=== PATIENT | male | born 1945 | race Caucasian/White ===

== ENCOUNTER 2016-07-31 05:24 | Inpatient (IN) | payer OTHER, BC ==
[~2016-07-31] VITALS: Ht 182.9 cm; Wt 106.9 kg
[~2016-07-31 05:24] MED LIST: ADALAT CC90 MG PO; ALDACTONE25 MG PO; ASPIRIN325 MG; ASPIRIN325 MG PO; ASPIRIN81 M1 PO; BACTRIM,SEPT1 TABLET PO; BENADRYL A12.5 MG/5 PO; BENADRYL ALLERG25 MG PO; BUMETANIDE1 MG PO; CAPOTEN25 MG PO; CAPOTEN50 MG PO; CAPT25T PO; CAPTOPRIL25 MG PO; CAPTOPRIL50 MG PO; CARVEDILOL12.5 MG PO; CARVEDILOL3.125 MG PO; CARVEDILOL6.25 MG; CARVEDILOL6.25 MG PO; CLEOCIN150 MG PO; COREG CR10 MG PO; COREG6.25 M1 PO; DULERA 200 MCG/13 GM IH; FENOFIBRATE160 M1; FENOFIBRATE160 M1 PO; FUROSEMIDE20 MG PO; FUROSEMIDE40 MG PO; FUROSEMIDE80 MG; HUMULIN R500 UNITS/ SC; HYDROCHLOROTHIA25 MG PO; KEPPRA750 MG PO; KLOR-CON M2020 MEQ PO; LANTUS 10100 UNITS/; LANTUS 10100 UNITS/ SC; LASIX40 MG PO; LASIX80 MG PO; LOPRESSOR50 MG PO; LOVAZA1 GM; LOVAZA1 GM PO; Lasix PO; Lovaza PO; MAGNESIUM250 MG PO; MECLIZINE HCL25 MG PO; METFORMIN HCL500 M1 PO; METOLAZONE5 MG PO; MIRTAZAPINE15 MG PO; NEURONTIN300 MG PO; NOVOLOG PE100 UNITS/ SC; NOVOLOG PE100 UNITS/ SQ; PANTOPRAZOLE SO40 MG PO; PAROXETINE HCL20 MG; PAXIL20 MG PO; PHENYTOIN SODI300 MG PO; PROAIR HFA8.5 GM IH; REFRESH TEARS15 ML BOTH EYES; SENNA-TIME S T1 EACH PO; SIMVASTATIN40 MG; SIMVASTATIN40 MG PO; SIMVASTATIN80 MG PO; SPIRIVA1 INHALATI IH; SPIRONOLACTONE25 MG; SPIRONOLACTONE25 MG PO; TAMSULOSIN HCL0.4 MG PO; TYLENOL WITH C1 EACH PO; VICODIN ES 7.51 EAC1 PO; VITAMIN D22000 UNIT PO; VITAMIN D250000 UNIT PO; WELCHOL625 MG PO; ZOCOR40 MG PO
[2016-07-31 06:17] LABS: HEMATOCRIT 38.1 % (38.0-50.0); MCH 31.6 PG (29.0-34.0); MCHC 34.1 G/DL (30.0-36.0); MCV 92.7 FL (86-99); MEAN PLAT.VOLUME 12.1 uM^3 (9.0-12.4); PLATELET COUNT 144 K/uL (156-360); RBC DIS.WIDTH-CV 14.4 % (11.8-14.6); RBC DIS.WIDTH-SD 47.8 % (39-53); RED BLOOD COUNT 4.11 M/uL (4.00-5.50); WHITE BLOOD COUNT 12.7 K/uL (4.1-10.2)
[2016-07-31 06:27] LABS: CHLORIDE 100 mEq/L (99-109); POTASSIUM 3.5 mEq/L (3.7-5.4); SODIUM 137 mEq/L (136-147)
[2016-07-31 06:29] LABS: GLUCOSE 277 mg/dL (70-99)
[2016-07-31 06:30] LABS: ANION GAP 12 MEQ/L (2-14)
[2016-07-31 06:34] LABS: GFR ESTIMATE (CALCULATED) 45 mL/min/; UREA NITROGEN (BUN) 38 mg/dL (9-23)
[2016-07-31 08:01] LABS: TROP-I INTERPRETATION NEGATIVE; TROPONIN-I 0.19 ng/mL (0.0-0.30)
[2016-07-31] MEDS ORDERED: OMEGA 3 500 SO1 EACH PO (10:14)
[2016-07-31] MEDS ORDERED: CHOLEST CARE500 MG PO (10:15)
[2016-07-31] MEDS ORDERED: METOLAZONE5 MG PO (10:19)
[2016-07-31] MEDS ORDERED: LASIX40 MG PO ×2 (10:20→10:22)
[2016-07-31] MEDS ORDERED: SUPER CALCIUM600 MG PO (10:23)
[2016-07-31] MEDS ORDERED: COLACE100 MG PO (10:24)
[2016-07-31] MEDS ORDERED: COREG6.25 M1 PO (10:25)
[2016-07-31] MEDS ORDERED: COREG3.125 M1 PO (10:26)
[2016-07-31] MEDS ORDERED: HUMULIN R500 UNITS/ SC ×2 (10:48→10:49)
[2016-07-31 11:27] LABS: BASE EXCESS 5.6 mEq/L (-3 to +3); BICARBONATE 30.6 mEq/L (22-26); CARBOXY HGB 1.8 % (0-5); METHEMOGLOBIN 0.8 % (0-1.5); PCO2 45 mm Hg (35-45); PO2 81 mm Hg (80-100); pH 7.44 (7.35-7.45)
[2016-07-31 11:28] LABS: COMMENTS - BLOOD GASES A+C+; DEVICE NC; O2 FLOW 3 L/MIN; SITE LR; TOTAL RESP RATE 24 resp/min
[2016-07-31 12:18] VITALS: BP 133/76
[2016-07-31 12:24] LABS: POINT-OF-CARE METER ID UU14188625
[2016-07-31 16:49] VITALS: BP 143/81
[2016-07-31 20:00] VITALS: BP 139/65
[2016-07-31 22:19] LABS: POINT-OF-CARE METER ID UU14174225
[2016-07-31 22:41] LABS: METH RESISTANT S AUREUS PCR NEGATIVE (NEGATIVE)
[2016-07-31 22:50] LABS: PROBE CHECK PASS; SPECIMEN PROCESSING CONTROL PASS
[2016-08-01] VITALS (7 sets, daily range): BP systolic 100–150; BP diastolic 52–90
[2016-08-01 08:40] LABS: POINT-OF-CARE METER ID UU14188625
[2016-08-01 09:32] LABS: HEMATOCRIT 36.7 % (38.0-50.0); MCH 31.8 PG (29.0-34.0); MCHC 33.2 G/DL (30.0-36.0); MCV 95.6 FL (86-99); PLATELET COUNT 147 K/uL (156-360); RBC DIS.WIDTH-CV 14.4 % (11.8-14.6); RBC DIS.WIDTH-SD 50.3 % (39-53); RED BLOOD COUNT 3.84 M/uL (4.00-5.50); WHITE BLOOD COUNT 10.1 K/uL (4.1-10.2)
[2016-08-01 09:59] LABS: Estimated Average Glucose 260 mg/dL (70-123); HEMOGLOBIN A1c (GLYCOHEMOGLOB) 10.7 % HGB (Below 5.7)
[2016-08-01 10:28] LABS: ANION GAP 13 MEQ/L (2-14); CHLORIDE 96 MEQ/L (99-109); SAMPLE HEMOLYSIS CHECK 0; SAMPLE ICTERIC CHECK 0; SAMPLE LIPEMIA CHECK 0; SODIUM 136 MEQ/L (136-147); TOTAL BILIRUBIN 1.4 MG/DL (0.0-1.0)
[2016-08-01 10:46] LABS: ALKALINE PHOSPHATASE 77 IU/L (3-129); GFR ESTIMATE (CALCULATED) 42 mL/min/; GLUCOSE 408 mg/dL (70-99); UREA NITROGEN (BUN) 48 mg/dL (9-23)
[2016-08-01 14:17] LABS: POINT-OF-CARE METER ID UU14174225
[2016-08-01 17:17] LABS: POINT-OF-CARE METER ID UU14188625
[2016-08-01 21:54] LABS: POINT-OF-CARE METER ID UU14188625
[2016-08-02] VITALS: BP 112/61
[2016-08-02 02:53] LABS: POINT-OF-CARE METER ID UU14188625
[2016-08-02 04:00] VITALS: BP 115/66
[2016-08-02 07:17] LABS: ANION GAP 12 MEQ/L (2-14); CHLORIDE 97 MEQ/L (99-109); GFR ESTIMATE (CALCULATED) 26 mL/min/; POTASSIUM 3.6 MEQ/L (3.7-5.4); SAMPLE HEMOLYSIS CHECK 0; SAMPLE ICTERIC CHECK 0; SAMPLE LIPEMIA CHECK 0; SODIUM 140 MEQ/L (136-147); UREA NITROGEN (BUN) 62 mg/dL (9-23)
[2016-08-02 07:26] LABS: GLUCOSE 50 mg/dL (70-99)
[2016-08-02 07:49] VITALS: BP 113/69
[2016-08-02 16:16] VITALS: BP 116/68
[2016-08-02 21:39] LABS: POINT-OF-CARE METER ID UU14188625
[2016-08-02 22:14] LABS: BILIRUBIN NEGATIVE; BLOOD NEGATIVE; GLUCOSE (STRIP) 50; KETONES NEGATIVE; LEUKOCYTES NEGATIVE; NITRITE NEGATIVE; PROTEIN (STRIP) NEGATIVE; SPECIFIC GRAVITY 1.017 (1.000-1.030); UROBILINOGEN 0.2 MG/DL (0.2-1.0)
[2016-08-02 22:15] LABS: ADD MIUA? NO; COLOR YELLOW ((YELLOW))
[2016-08-02 23:14] VITALS: BP 133/70
[2016-08-03 07:32] LABS: POINT-OF-CARE METER ID UU14188625
[2016-08-03 07:52] VITALS: BP 150/76
[2016-08-03 08:36] LABS: HEMATOCRIT 33.6 % (38.0-50.0); MCH 31.8 PG (29.0-34.0); MCHC 33.3 G/DL (30.0-36.0); MCV 95.5 FL (86-99); MEAN PLAT.VOLUME 12.3 uM^3 (9.0-12.4); PLATELET COUNT 160 K/uL (156-360); RBC DIS.WIDTH-SD 48.3 % (39-53); RED BLOOD COUNT 3.52 M/uL (4.00-5.50)
[2016-08-03 08:44] LABS: WHITE BLOOD COUNT 6.1 K/uL (4.1-10.2)
[2016-08-03 08:53] LABS: ANION GAP 11 MEQ/L (2-14); CHLORIDE 101 MEQ/L (99-109); FERRITIN 318 NG/ML (22-322); GFR ESTIMATE (CALCULATED) 26 mL/min/; IRON 31 MCG/DL (35-150); POTASSIUM 4.2 MEQ/L (3.7-5.4); SAMPLE HEMOLYSIS CHECK 0; SAMPLE ICTERIC CHECK 0; SAMPLE LIPEMIA CHECK 0; SODIUM 141 MEQ/L (136-147); UREA NITROGEN (BUN) 80 mg/dL (9-23); URIC ACID 12.8 mg/dL (3.1-9.2)
[2016-08-03 08:54] LABS: GLUCOSE 127 mg/dL (70-99)
[2016-08-03 09:23] LABS: INTACT PARATHYROID HORMONE 76 pg/mL (10-69)
[2016-08-03 11:45] VITALS: BP 125/63
[2016-08-03 15:42] VITALS: BP 132/73
[2016-08-03 23:24] VITALS: BP 142/70
[2016-08-04 07:58] LABS: ANION GAP 11 MEQ/L (2-14); CHLORIDE 98 MEQ/L (99-109); GFR ESTIMATE (CALCULATED) 37 mL/min/; POTASSIUM 4.1 MEQ/L (3.7-5.4); SAMPLE HEMOLYSIS CHECK 0; SAMPLE ICTERIC CHECK 0; SAMPLE LIPEMIA CHECK 0; SODIUM 138 MEQ/L (136-147); UREA NITROGEN (BUN) 85 mg/dL (9-23)
[2016-08-04 07:59] LABS: GLUCOSE 45 mg/dL (70-99)
[2016-08-04 08:06] VITALS: BP 120/69
[2016-08-04 08:45] LABS: POINT-OF-CARE METER ID UU14188625
[2016-08-04 10:43] VITALS: BP 125/67
[2016-08-04 15:58] VITALS: BP 124/68
[2016-08-04 23:38] VITALS: BP 150/82
[2016-08-05 06:43] LABS: ANION GAP 8 MEQ/L (2-14); CHLORIDE 96 MEQ/L (99-109); GFR ESTIMATE (CALCULATED) 37 mL/min/; POTASSIUM 4.8 MEQ/L (3.7-5.4); SAMPLE HEMOLYSIS CHECK 0; SAMPLE ICTERIC CHECK 0; SAMPLE LIPEMIA CHECK 0; SODIUM 134 MEQ/L (136-147); UREA NITROGEN (BUN) 92 mg/dL (9-23)
[2016-08-05 06:44] LABS: GLUCOSE 381 mg/dL (70-99)
[2016-08-05 07:38] VITALS: BP 109/69
[2016-08-05 16:03] VITALS: BP 116/68
[2016-08-05 20:08] VITALS: BP 142/80
[2016-08-05 23:47] VITALS: BP 156/72
[2016-08-06 03:13] LABS: POINT-OF-CARE METER ID UU14188625
[2016-08-06 06:55] LABS: EOSINOPHIL (%) 0.3 % (0-5); HEMATOCRIT 34.5 % (38.0-50.0); IMMATURE GRANULOCYTE (%) 1.6 % (0.0-0.7); IMMATURE GRANULOCYTE COUNT 0.2 K/uL; INSTRUMENT ABS NEUTROPHIL CT 7.9 K/uL; LYMPHOCYTE COUNT 1.3 K/uL (1.0-2.8); MCH 31.8 PG (29.0-34.0); MCV 96.1 FL (86-99); MEAN PLAT.VOLUME 12.4 uM^3 (9.0-12.4); MONOCYTE (%) 10.4 % (3-12); MONOCYTE COUNT 1.1 K/uL (0-0.8); NEUTROPHIL (%) 75.3 % (45-76); NEUTROPHIL COUNT 7.9 K/uL (1.8-6.4); PLATELET COUNT 192 K/uL (156-360); RBC DIS.WIDTH-SD 49.3 % (39-53); RED BLOOD COUNT 3.59 M/uL (4.00-5.50)
[2016-08-06 07:04] LABS: WHITE BLOOD COUNT 10.5 K/uL (4.1-10.2)
[2016-08-06 07:39] VITALS: BP 127/73
[2016-08-06 08:28] LABS: ANION GAP 7 MEQ/L (2-14); CHLORIDE 100 MEQ/L (99-109); GFR ESTIMATE (CALCULATED) 49 mL/min/; POTASSIUM 4.9 MEQ/L (3.7-5.4); SAMPLE HEMOLYSIS CHECK 0; SAMPLE ICTERIC CHECK 0; SAMPLE LIPEMIA CHECK 0; SODIUM 138 MEQ/L (136-147); UREA NITROGEN (BUN) 91 mg/dL (9-23)
[2016-08-06 08:29] LABS: GLUCOSE 177 mg/dL (70-99)
[2016-08-06 15:51] VITALS: BP 154/92
[2016-08-06 21:00] VITALS: BP 169/87
[2016-08-06 23:20] VITALS: BP 178/94
[2016-08-07 03:15] VITALS: BP 164/88
[2016-08-07 07:22] VITALS: BP 130/70
[2016-08-07 07:36] LABS: HEMATOCRIT 36.9 % (38.0-50.0); MCH 31.5 PG (29.0-34.0); MCHC 32.8 G/DL (30.0-36.0); MCV 96.1 FL (86-99); MEAN PLAT.VOLUME 12.1 uM^3 (9.0-12.4); PLATELET COUNT 205 K/uL (156-360); RBC DIS.WIDTH-SD 49.3 % (39-53); RED BLOOD COUNT 3.84 M/uL (4.00-5.50); WHITE BLOOD COUNT 12.9 K/uL (4.1-10.2)
[2016-08-07 07:46] LABS: INTER. NORMALIZED RATIO 1.1; PTT 24.4 (25-32)
[2016-08-07 07:51] LABS: ANION GAP 5 MEQ/L (2-14); CHLORIDE 102 MEQ/L (99-109); GFR ESTIMATE (CALCULATED) 58 mL/min/; GLUCOSE 130 mg/dL (70-99); SAMPLE HEMOLYSIS CHECK 1; SAMPLE ICTERIC CHECK 0; SAMPLE LIPEMIA CHECK 0; SODIUM 139 MEQ/L (136-147); UREA NITROGEN (BUN) 74 mg/dL (9-23)
[2016-08-07 07:54] LABS: POTASSIUM 4.4 MEQ/L (3.7-5.4)
[2016-08-07 07:59] LABS: POINT-OF-CARE METER ID UU14174225
[2016-08-07 09:05] LABS: TYPE OF FLUID PLEURAL
[2016-08-07 09:59] LABS: BODY FLUID EOSINOPHILS 0 % (0-25); BODY FLUID RBC'S 1000 /MM^3 (0-100); BODY FLUID WBC'S 205 /MM^3 (0-500); MONONUCLEAR WBC'S 97 %; POLYNUCLEAR WBC'S 3 % (0-25)
[2016-08-07 10:01] LABS: BODY FLUID LDH 46 IU/L
[2016-08-07] MEDS ORDERED: LISINOPRIL5 MG PO (11:24)
[2016-08-07] MEDS ORDERED: CEFDINIR300 MG PO (11:24)
[2016-08-07] MEDS ORDERED: PREDNISONE20 MG PO (11:24)
[2016-08-07] MEDS ORDERED: CARVEDILOL6.25 MG PO (11:24)
[2016-08-07 11:32] LABS: BODY FLUID PROTEIN < 3 G/DL
[2016-08-07 11:38] VITALS: BP 132/71
[2016-08-07 12:19] LABS: POINT-OF-CARE METER ID UU14188625
[2016-08-07 13:01] LABS: POINT-OF-CARE METER ID UU14174225
== END 2016-08-07 14:25 | disposition home health service (06) | DRG 291 ==
LOC: EME 05:24 → EDOF 10:37 → 5SOUTH 10:37
PROVIDERS: Emergency Medicine; Hospitalist; Internal Medicine; Internal Medicine Cardiovascular Disease; Internal Medicine Nephrology; Nurse Practitioner Adult Health; Physician Assistant Medical
PROC: 0W993ZX Drainage of Right Pleural Cavity, Percutaneous Approach, Diagnostic (ICD-10-PCS; principal; 2016-08-07)
DX: I50.23 Acute on chronic systolic (congestive) heart failure (principal); J18.9 Pneumonia, unspecified organism; J96.11 Chronic respiratory failure with hypoxia; J44.1 Chronic obstructive pulmonary disease with (acute) exacerbation; N17.9 Acute kidney failure, unspecified; N18.3 Chronic kidney disease, stage 3 (moderate); I25.10 Atherosclerotic heart disease of native coronary artery without angina pectoris; L89.892 Pressure ulcer of other site, stage 2; I12.9 Hypertensive chronic kidney disease with stage 1 through stage 4 chronic kidney disease, or unspecified chronic kidney disease; E78.5 Hyperlipidemia, unspecified; E11.22 Type 2 diabetes mellitus with diabetic chronic kidney disease; G47.33 Obstructive sleep apnea (adult) (pediatric); I51.7 Cardiomegaly; E66.01 Morbid (severe) obesity due to excess calories; D64.9 Anemia, unspecified; Z68.32 Body mass index [BMI] 32.0-32.9, adult; Z86.73 Personal history of transient ischemic attack (TIA), and cerebral infarction without residual deficits; Z87.891 Personal history of nicotine dependence; Z79.4 Long term (current) use of insulin
CPT/HCPCS: 36600; 70450; 71010; 71020; 74230; 80048; 80053; 80069; 81003; 82306; 82728; 82746; 82803; 82945; 82948; 83036; 83540; 83615 91; 83880; 83970; 84157; 84443; 84466; 84484; 84550; 85025; 85027; 85610; 85730; 87040; 87070; 87205; 87641; 88108; 88305; 89051; 92526 GN; 92610 GN; 92611 GN; 93005; 94640; 94640 76; 94664; 94760; 94799; 97530 GO; 97530 GP; 99202; 99281; 99285; J0456; J0696; J1650; J1815; J1940; J7050; J7512

== ENCOUNTER 2016-10-04 16:32 | Inpatient (IN) | payer OTHER, BC ==
[~2016-10-04] VITALS: Ht 182.9 cm; Wt 106.7 kg
[~2016-10-04 16:32] MED LIST changes: +CEFDINIR300 MG PO; +CHOLEST CARE500 MG PO; +COLACE100 MG PO; +COREG3.125 M1 PO; +LISINOPRIL5 MG PO; +OMEGA 3 500 SO1 EACH PO; +PREDNISONE20 MG PO; +SUPER CALCIUM600 MG PO
[2016-10-04 17:12] LABS: CARBON DIOXIDE (BICARBONATE) 32.6 MEQ/L (20-31)
[2016-10-04 17:12] LABS: MCHC 34.9 G/DL (30.0-36.0); MCV 94.7 FL (86-99); PLATELET COUNT 148 K/uL (156-360); RBC DIS.WIDTH-CV 13.6 % (11.8-14.6); RBC DIS.WIDTH-SD 47.4 % (39-53); RED BLOOD COUNT 4.12 M/uL (4.00-5.50); WHITE BLOOD COUNT 9.9 K/uL (4.1-10.2)
[2016-10-04 17:20] LABS: CHLORIDE 96 mEq/L (99-109); POTASSIUM 4.3 mEq/L (3.7-5.4); SODIUM 136 mEq/L (136-147)
[2016-10-04 17:22] LABS: GLUCOSE 393 mg/dL (70-99)
[2016-10-04 17:23] LABS: ANION GAP 15 MEQ/L (2-14)
[2016-10-04 17:26] LABS: GFR ESTIMATE (CALCULATED) 45 mL/min/
[2016-10-04 17:27] LABS: UREA NITROGEN (BUN) 37 mg/dL (9-23)
[2016-10-04 17:32] LABS: TROP-I INTERPRETATION NEGATIVE; TROPONIN-I 0.02 ng/mL (0.0-0.30)
[2016-10-04] MEDS ORDERED: LISINOPRIL5 MG PO (19:40)
[2016-10-04 21:07] LABS: MAGNESIUM 1.9 mg/dL (1.3-2.7)
[2016-10-04 21:52] VITALS: BP 153/74
[2016-10-05] VITALS (7 sets, daily range): BP systolic 90–174; BP diastolic 47–97
[2016-10-05 06:44] LABS: ANION GAP 11 MEQ/L (2-14); CHLORIDE 98 MEQ/L (99-109); GFR ESTIMATE (CALCULATED) 40 mL/min/; MAGNESIUM 2.2 mg/dl (1.3-2.7); POTASSIUM 3.6 MEQ/L (3.7-5.4); SAMPLE HEMOLYSIS CHECK 0; SAMPLE ICTERIC CHECK 0; SAMPLE LIPEMIA CHECK 0; SODIUM 141 MEQ/L (136-147); UREA NITROGEN (BUN) 44 mg/dL (9-23)
[2016-10-05 06:46] LABS: GLUCOSE 66 mg/dL (70-99)
[2016-10-05 09:42] LABS: POINT-OF-CARE METER ID UU13113702
[2016-10-05 09:44] LABS: POINT-OF-CARE METER ID UU14174225
[2016-10-05 17:31] LABS: POINT-OF-CARE METER ID UU14174225
[2016-10-06 03:29] VITALS: BP 101/50
[2016-10-06 06:00] LABS: ANION GAP 11 MEQ/L (2-14); CHLORIDE 98 MEQ/L (99-109); GFR ESTIMATE (CALCULATED) 40 mL/min/; GLUCOSE 264 mg/dL (70-99); POTASSIUM 4.6 MEQ/L (3.7-5.4); SAMPLE HEMOLYSIS CHECK 0; SAMPLE ICTERIC CHECK 0; SAMPLE LIPEMIA CHECK 0; SODIUM 138 MEQ/L (136-147); UREA NITROGEN (BUN) 52 mg/dL (9-23)
[2016-10-06 08:06] VITALS: BP 113/71
[2016-10-06 12:00] VITALS: BP 134/85
[2016-10-06 15:12] VITALS: BP 158/77
[2016-10-06 16:34] LABS: POINT-OF-CARE METER ID UU13113717
[2016-10-06 19:38] VITALS: BP 124/67
[2016-10-06 21:37] LABS: POINT-OF-CARE METER ID UU13113717
[2016-10-06 23:38] VITALS: BP 139/73
[2016-10-07 03:36] VITALS: BP 143/75
[2016-10-07 06:28] LABS: ANION GAP 10 MEQ/L (2-14); CHLORIDE 96 MEQ/L (99-109); GFR ESTIMATE (CALCULATED) 42 mL/min/; GLUCOSE 300 mg/dL (70-99); MAGNESIUM 2.1 mg/dl (1.3-2.7); POTASSIUM 4.9 MEQ/L (3.7-5.4); SAMPLE HEMOLYSIS CHECK 0; SAMPLE ICTERIC CHECK 0; SAMPLE LIPEMIA CHECK 0; SODIUM 136 MEQ/L (136-147); UREA NITROGEN (BUN) 59 mg/dL (9-23)
[2016-10-07 08:00] VITALS: BP 147/82
[2016-10-07 11:24] VITALS: BP 136/80
[2016-10-07 15:32] VITALS: BP 138/82
[2016-10-07 19:30] VITALS: BP 140/76
[2016-10-07 23:49] VITALS: BP 147/68
[2016-10-08 03:57] VITALS: BP 122/74
[2016-10-08 05:33] LABS: POINT-OF-CARE METER ID UU13113717
[2016-10-08 07:04] LABS: ANION GAP 10 MEQ/L (2-14); CHLORIDE 99 MEQ/L (99-109); GFR ESTIMATE (CALCULATED) 42 mL/min/; POTASSIUM 4.3 MEQ/L (3.7-5.4); SAMPLE HEMOLYSIS CHECK 0; SAMPLE ICTERIC CHECK 0; SAMPLE LIPEMIA CHECK 0; SODIUM 140 MEQ/L (136-147); UREA NITROGEN (BUN) 66 mg/dL (9-23)
[2016-10-08 07:05] LABS: GLUCOSE 42 mg/dL (70-99)
[2016-10-08 07:35] LABS: POINT-OF-CARE METER ID UU13113717
[2016-10-08 08:21] VITALS: BP 108/62
== END 2016-10-08 12:35 | disposition home health service (06) | DRG 291 ==
LOC: EME → EDBD 16:32 → EME 16:32 → EDOF 20:07 → 5SOUTH 20:07
PROVIDERS: Emergency Medicine; Hospitalist; Internal Medicine; Internal Medicine Cardiovascular Disease; Physician Assistant Medical
DX: I13.0 Hypertensive heart and chronic kidney disease with heart failure and stage 1 through stage 4 chronic kidney disease, or unspecified chronic kidney disease (principal); I50.23 Acute on chronic systolic (congestive) heart failure; L97.519 Non-pressure chronic ulcer of other part of right foot with unspecified severity; G47.33 Obstructive sleep apnea (adult) (pediatric); E78.2 Mixed hyperlipidemia; Z91.19 Patient's noncompliance with other medical treatment and regimen; E11.22 Type 2 diabetes mellitus with diabetic chronic kidney disease; E11.621 Type 2 diabetes mellitus with foot ulcer; E11.40 Type 2 diabetes mellitus with diabetic neuropathy, unspecified; I42.9 Cardiomyopathy, unspecified; J96.11 Chronic respiratory failure with hypoxia; L89.151 Pressure ulcer of sacral region, stage 1; Z87.891 Personal history of nicotine dependence; F32.9 Major depressive disorder, single episode, unspecified; I69.393 Ataxia following cerebral infarction; E66.01 Morbid (severe) obesity due to excess calories; Z68.31 Body mass index [BMI] 31.0-31.9, adult; G81.91 Hemiplegia, unspecified affecting right dominant side; E11.65 Type 2 diabetes mellitus with hyperglycemia; N18.3 Chronic kidney disease, stage 3 (moderate); E11.610 Type 2 diabetes mellitus with diabetic neuropathic arthropathy; I25.10 Atherosclerotic heart disease of native coronary artery without angina pectoris; N40.0 Benign prostatic hyperplasia without lower urinary tract symptoms; J44.1 Chronic obstructive pulmonary disease with (acute) exacerbation; Z79.4 Long term (current) use of insulin; Z82.3 Family history of stroke; Z86.14 Personal history of Methicillin resistant Staphylococcus aureus infection
CPT/HCPCS: 71020; 80048; 82803; 82948; 83605; 83735; 83880; 84484; 84999; 85027; 87040; 93005; 93306; 94640; 94640 76; 94799; 99202; 99281; 99285; J1644; J1815; J1940

== ENCOUNTER 2016-11-18 10:42 | Inpatient (IN) | payer OTHER, BC ==
[~2016-11-18] VITALS: Ht 182.9 cm; Wt 105.4 kg
[2016-11-18 11:35] LABS: ADD MIUA? NO; BILIRUBIN NEGATIVE; BLOOD NEGATIVE; COLOR YELLOW ((YELLOW)); GLUCOSE (STRIP) >=500; KETONES NEGATIVE; LEUKOCYTES NEGATIVE; NITRITE NEGATIVE; PROTEIN (STRIP) 30; SPECIFIC GRAVITY 1.011 (1.000-1.030); UCUL ADDED? NO; UROBILINOGEN 0.2 MG/DL (0.2-1.0)
[2016-11-18 11:37] LABS: EOSINOPHIL (%) 1.8 % (0-5); EOSINOPHIL COUNT 0.2 K/uL (0-0.3); HEMATOCRIT 38.6 % (38.0-50.0); IMMATURE GRANULOCYTE (%) 0.7 % (0.0-0.7); IMMATURE GRANULOCYTE COUNT 0.1 K/uL; INSTRUMENT ABS NEUTROPHIL CT 6.1 K/uL; LYMPHOCYTE COUNT 1.2 K/uL (1.0-2.8); MCH 32.4 PG (29.0-34.0); MCHC 35.2 G/DL (30.0-36.0); MCV 91.9 FL (86-99); MEAN PLAT.VOLUME 11.7 uM^3 (9.0-12.4); MONOCYTE (%) 7.7 % (3-12); MONOCYTE COUNT 0.6 K/uL (0-0.8); NEUTROPHIL COUNT 6.1 K/uL (1.8-6.4); PLATELET COUNT 154 K/uL (156-360); RBC DIS.WIDTH-CV 11.9 % (11.8-14.6); RBC DIS.WIDTH-SD 40.1 % (39-53); WHITE BLOOD COUNT 8.2 K/uL (4.1-10.2)
[2016-11-18 11:40] LABS: CHLORIDE 96 mEq/L (99-109); POTASSIUM 5.1 mEq/L (3.7-5.4); SODIUM 136 mEq/L (136-147)
[2016-11-18 11:42] LABS: GLUCOSE 148 mg/dL (70-99)
[2016-11-18 11:43] LABS: ANION GAP 15 MEQ/L (2-14)
[2016-11-18 11:46] LABS: GFR ESTIMATE (CALCULATED) 24 mL/min/
[2016-11-18 11:48] LABS: UREA NITROGEN (BUN) 104 mg/dL (9-23)
[2016-11-18 11:51] LABS: TROP-I INTERPRETATION NEGATIVE; TROPONIN-I 0.08 ng/mL (0.0-0.30)
[2016-11-18 13:32] LABS: TOTAL BILIRUBIN 0.6 mg/dL (0.0-1.0)
[2016-11-18 13:33] LABS: ALKALINE PHOSPHATASE 73 IU/L (3-129)
[2016-11-18 13:35] LABS: DIRECT BILIRUBIN 0.2 mg/dL (0.0-0.3)
[2016-11-18 13:36] LABS: LIPASE 85 U/L (1.0-51.0)
[2016-11-18 13:45] LABS: POINT-OF-CARE METER ID UU14100415
[2016-11-18] MEDS ORDERED: REMERON15 M2 PO ×2 (14:56→14:57)
[2016-11-18] MEDS ORDERED: FLOMAX0.4 MG PO (14:59)
[2016-11-18 16:11] VITALS: BP 151/70
[2016-11-18 17:15] LABS: POINT-OF-CARE METER ID UU14174225
[2016-11-18 19:48] VITALS: BP 140/78
[2016-11-18 20:27] LABS: TROP-I INTERPRETATION NEGATIVE; TROPONIN-I 0.05 ng/mL (0.0-0.30)
[2016-11-18 23:41] VITALS: BP 110/63
[2016-11-19 03:33] VITALS: BP 118/68
[2016-11-19 06:09] LABS: HEMATOCRIT 34.5 % (38.0-50.0); MCH 32.3 PG (29.0-34.0); MCHC 35.1 G/DL (30.0-36.0); MEAN PLAT.VOLUME 11.3 uM^3 (9.0-12.4); PLATELET COUNT 133 K/uL (156-360); RBC DIS.WIDTH-CV 11.9 % (11.8-14.6); RBC DIS.WIDTH-SD 40.4 % (39-53); RED BLOOD COUNT 3.75 M/uL (4.00-5.50); WHITE BLOOD COUNT 7.9 K/uL (4.1-10.2)
[2016-11-19 06:35] LABS: ANION GAP 9 MEQ/L (2-14); CHLORIDE 104 MEQ/L (99-109); POTASSIUM 4.1 MEQ/L (3.7-5.4); SAMPLE HEMOLYSIS CHECK 0; SAMPLE ICTERIC CHECK 0; SAMPLE LIPEMIA CHECK 0; SODIUM 139 MEQ/L (136-147); UREA NITROGEN (BUN) 85 mg/dL (9-23)
[2016-11-19 07:00] LABS: GFR ESTIMATE (CALCULATED) 37 mL/min/; GLUCOSE 64 mg/dL (70-99)
[2016-11-19 07:16] LABS: TROP-I INTERPRETATION NEGATIVE; TROPONIN-I 0.06 ng/mL (0.0-0.30)
[2016-11-19 07:24] LABS: POINT-OF-CARE METER ID UU13113717
[2016-11-19 07:32] LABS: MAGNESIUM 2.2 mg/dl (1.3-2.7)
[2016-11-19 07:54] LABS: POINT-OF-CARE METER ID UU13113717
[2016-11-19 08:50] VITALS: BP 132/66
[2016-11-19 09:34] LABS: HDL CHOLESTEROL 27 MG/DL (Desirable>=40); NON-HDL CHOLESTEROL 208 mg/dL (Desirable<160); TOTAL CHOLESTEROL 235 mg/dL (Desirable<200); TRIGLYCERIDES 453 MG/DL (Normal: <150)
[2016-11-19 10:16] LABS: Estimated Average Glucose 303 mg/dL (70-123); HEMOGLOBIN A1c (GLYCOHEMOGLOB) 12.2 % HGB (Below 5.7)
[2016-11-19 12:31] VITALS: BP 136/64
[2016-11-19 15:48] VITALS: BP 131/61
[2016-11-19 16:53] LABS: POINT-OF-CARE METER ID UU13113717
[2016-11-19 19:49] VITALS: BP 115/56
[2016-11-19 20:40] LABS: POINT-OF-CARE USER ID BHSKTD
[2016-11-20] VITALS (10 sets, daily range): BP systolic 90–149; BP diastolic 51–70
[2016-11-20 05:36] LABS: HEMATOCRIT 29.4 % (38.0-50.0); MCH 33.5 PG (29.0-34.0); MCHC 35.7 G/DL (30.0-36.0); MCV 93.9 FL (86-99); MEAN PLAT.VOLUME 11.8 uM^3 (9.0-12.4); PLATELET COUNT 111 K/uL (156-360); RBC DIS.WIDTH-CV 12.1 % (11.8-14.6); RBC DIS.WIDTH-SD 41.1 % (39-53); RED BLOOD COUNT 3.13 M/uL (4.00-5.50); WHITE BLOOD COUNT 7.4 K/uL (4.1-10.2)
[2016-11-20 05:58] LABS: ANION GAP 5 MEQ/L (2-14); CHLORIDE 104 MEQ/L (99-109); GFR ESTIMATE (CALCULATED) 37 mL/min/; GLUCOSE 47 mg/dL (70-99); POTASSIUM 3.9 MEQ/L (3.7-5.4); SAMPLE HEMOLYSIS CHECK 0; SAMPLE ICTERIC CHECK 0; SAMPLE LIPEMIA CHECK 0; SODIUM 136 MEQ/L (136-147); UREA NITROGEN (BUN) 75 mg/dL (9-23)
[2016-11-20 08:37] LABS: POINT-OF-CARE METER ID UU14174225
[2016-11-20 17:12] LABS: POINT-OF-CARE METER ID UU14188625
[2016-11-21 03:58] VITALS: BP 123/59
[2016-11-21 05:53] LABS: HEMATOCRIT 30.6 % (38.0-50.0); MCH 33.1 PG (29.0-34.0); MCHC 35.6 G/DL (30.0-36.0); MEAN PLAT.VOLUME 12.3 uM^3 (9.0-12.4); PLATELET COUNT 132 K/uL (156-360); RBC DIS.WIDTH-CV 12.1 % (11.8-14.6); RED BLOOD COUNT 3.29 M/uL (4.00-5.50); WHITE BLOOD COUNT 7.4 K/uL (4.1-10.2)
[2016-11-21 06:26] LABS: POINT-OF-CARE METER ID UU14174225; POINT-OF-CARE USER ID BHSKTD
[2016-11-21 06:39] LABS: ANION GAP 8 MEQ/L (2-14); CHLORIDE 104 MEQ/L (99-109); GFR ESTIMATE (CALCULATED) 42 mL/min/; SAMPLE HEMOLYSIS CHECK 0; SAMPLE ICTERIC CHECK 0; SAMPLE LIPEMIA CHECK 0; SODIUM 138 MEQ/L (136-147); UREA NITROGEN (BUN) 59 mg/dL (9-23)
[2016-11-21 06:40] LABS: GLUCOSE 158 mg/dL (70-99)
[2016-11-21 08:44] VITALS: BP 133/71
[2016-11-21 11:32] VITALS: BP 158/67
[2016-11-21 12:26] LABS: POINT-OF-CARE METER ID UU13113717
[2016-11-21 16:12] VITALS: BP 145/74
[2016-11-21 17:05] LABS: POINT-OF-CARE METER ID UU13113717
[2016-11-21 20:00] VITALS: BP 146/70
[2016-11-21 21:04] LABS: POINT-OF-CARE METER ID UU13113717
[2016-11-22 00:10] VITALS: BP 151/71
[2016-11-22 04:15] VITALS: BP 134/70
[2016-11-22 07:09] LABS: HEMATOCRIT 33.5 % (38.0-50.0); MCH 33.6 PG (29.0-34.0); MCHC 36.1 G/DL (30.0-36.0); MCV 93.1 FL (86-99); MEAN PLAT.VOLUME 11.6 uM^3 (9.0-12.4); PLATELET COUNT 122 K/uL (156-360); RBC DIS.WIDTH-CV 12.2 % (11.8-14.6); RBC DIS.WIDTH-SD 41.6 % (39-53); WHITE BLOOD COUNT 6.7 K/uL (4.1-10.2)
[2016-11-22 07:23] LABS: ANION GAP 8 MEQ/L (2-14); CHLORIDE 104 MEQ/L (99-109); GFR ESTIMATE (CALCULATED) 53 mL/min/; GLUCOSE 182 mg/dL (70-99); POTASSIUM 4.3 MEQ/L (3.7-5.4); SAMPLE HEMOLYSIS CHECK 0; SAMPLE ICTERIC CHECK 0; SAMPLE LIPEMIA CHECK 0; SODIUM 139 MEQ/L (136-147); UREA NITROGEN (BUN) 47 mg/dL (9-23)
[2016-11-22 07:45] VITALS: BP 125/58
[2016-11-22] MEDS ORDERED: LASIX40 MG PO (07:59)
[2016-11-22 12:12] LABS: POINT-OF-CARE METER ID UU14188625
== END 2016-11-22 13:03 | disposition home health service (06) | DRG 683 ==
LOC: EME → EDBD 10:42 → EME 10:42 → 5SOUTH 13:59 → EDOF 13:59 → ENRESERV 14:00 → 5SOUTH 15:10
PROVIDERS: Emergency Medicine; Hospitalist; Internal Medicine; Internal Medicine Cardiovascular Disease; Physician Assistant Medical
DX: N17.9 Acute kidney failure, unspecified (principal); I42.8 Other cardiomyopathies; I13.0 Hypertensive heart and chronic kidney disease with heart failure and stage 1 through stage 4 chronic kidney disease, or unspecified chronic kidney disease; I47.2 Ventricular tachycardia; I69.359 Hemiplegia and hemiparesis following cerebral infarction affecting unspecified side; F05 Delirium due to known physiological condition; N18.3 Chronic kidney disease, stage 3 (moderate); E11.22 Type 2 diabetes mellitus with diabetic chronic kidney disease; E11.621 Type 2 diabetes mellitus with foot ulcer; E11.65 Type 2 diabetes mellitus with hyperglycemia; L97.519 Non-pressure chronic ulcer of other part of right foot with unspecified severity; E11.649 Type 2 diabetes mellitus with hypoglycemia without coma; E78.5 Hyperlipidemia, unspecified; F41.9 Anxiety disorder, unspecified; E86.9 Volume depletion, unspecified; G47.33 Obstructive sleep apnea (adult) (pediatric); I25.10 Atherosclerotic heart disease of native coronary artery without angina pectoris; E86.0 Dehydration; I50.9 Heart failure, unspecified; J44.9 Chronic obstructive pulmonary disease, unspecified; Z79.82 Long term (current) use of aspirin; Z79.4 Long term (current) use of insulin; Z87.891 Personal history of nicotine dependence; Z99.81 Dependence on supplemental oxygen
CPT/HCPCS: 70450; 70551; 71010; 71020; 76770; 80048; 80061; 80076; 81003; 82948; 83036; 83605; 83690; 83735; 83880; 84100; 84484; 85025; 85027; 93005; 94640; 94640 76; 94799; 97530 GP; 99202; 99281; 99284; J1644; J1815; J7030

== ENCOUNTER 2017-01-12 12:53 | Emergency (ER) | payer OTHER, BC ==
[~2017-01-12] VITALS: Ht 182.9 cm; Wt 100.0 kg
[~2017-01-12 12:53] MED LIST changes: +FLOMAX0.4 MG PO; +REMERON15 M2 PO
[2017-01-12 13:23] LABS: BASOPHIL COUNT 0.1 K/uL (0-0.1); EOSINOPHIL (%) 1.6 % (0-5); EOSINOPHIL COUNT 0.1 K/uL (0-0.3); HEMATOCRIT 40.1 % (38.0-50.0); IMMATURE GRANULOCYTE (%) 0.5 % (0.0-0.7); INSTRUMENT ABS NEUTROPHIL CT 5.5 K/uL; LYMPHOCYTE COUNT 1.3 K/uL (1.0-2.8); MCH 33.3 PG (29.0-34.0); MCHC 35.9 G/DL (30.0-36.0); MCV 92.8 FL (86-99); MEAN PLAT.VOLUME 12.1 uM^3 (9.0-12.4); MONOCYTE (%) 8.1 % (3-12); MONOCYTE COUNT 0.6 K/uL (0-0.8); NEUTROPHIL (%) 72.2 % (45-76); NEUTROPHIL COUNT 5.5 K/uL (1.8-6.4); PLATELET COUNT 158 K/uL (156-360); RBC DIS.WIDTH-CV 12.9 % (11.8-14.6); RED BLOOD COUNT 4.32 M/uL (4.00-5.50); WHITE BLOOD COUNT 7.6 K/uL (4.1-10.2)
[2017-01-12 13:30] LABS: INTER. NORMALIZED RATIO 1.1; PROTHROMBIN TIME 11.7 SEC (10.2-12.9)
[2017-01-12 13:33] LABS: PTT 25.6 SEC (25-37)
[2017-01-12 13:37] LABS: CHLORIDE 88 mEq/L (99-109); POTASSIUM 3.5 mEq/L (3.7-5.4); SODIUM 134 mEq/L (136-147)
[2017-01-12 13:40] LABS: ANION GAP 16 MEQ/L (2-14)
[2017-01-12 13:41] LABS: GLUCOSE 525 mg/dL (70-99); TROP-I INTERPRETATION NEGATIVE; TROPONIN-I 0.06 ng/mL (0.0-0.30)
[2017-01-12 13:42] LABS: GFR ESTIMATE (CALCULATED) 37 mL/min/
[2017-01-12 14:31] LABS: CARBON DIOXIDE (BICARBONATE) 36.4 MEQ/L (20-31)
[2017-01-12 16:41] LABS: ADD MIUA? NO; BILIRUBIN NEGATIVE; BLOOD NEGATIVE; COLOR YELLOW ((YELLOW)); GLUCOSE (STRIP) >=500; KETONES 5; LEUKOCYTES NEGATIVE; NITRITE NEGATIVE; PROTEIN (STRIP) 30; UROBILINOGEN 0.2 MG/DL (0.2-1.0)
[2017-01-12 16:43] LABS: UCUL ADDED? NO
[2017-01-12 18:56] VITALS: BP 165/81
[2017-01-13 11:59] LABS: POINT-OF-CARE METER ID UU14100415
[2017-01-13 11:59] LABS: POINT-OF-CARE METER ID UU14100415; POINT-OF-CARE USER ID PUTMLD10
== END 2017-01-12 18:57 | disposition home or self-care (01) ==
LOC: EME 12:53
PROVIDERS: Emergency Medicine
DX: E11.65 Type 2 diabetes mellitus with hyperglycemia (principal); I13.0 Hypertensive heart and chronic kidney disease with heart failure and stage 1 through stage 4 chronic kidney disease, or unspecified chronic kidney disease; N18.9 Chronic kidney disease, unspecified; I50.9 Heart failure, unspecified; E11.22 Type 2 diabetes mellitus with diabetic chronic kidney disease; E78.5 Hyperlipidemia, unspecified; Z79.4 Long term (current) use of insulin; J44.9 Chronic obstructive pulmonary disease, unspecified; F32.9 Major depressive disorder, single episode, unspecified; F41.9 Anxiety disorder, unspecified; I69.951 Hemiplegia and hemiparesis following unspecified cerebrovascular disease affecting right dominant side; Z85.828 Personal history of other malignant neoplasm of skin; Z87.891 Personal history of nicotine dependence; F10.10 Alcohol abuse, uncomplicated
CPT/HCPCS: 70450; 71010; 80048; 81003; 82010; 82803; 82948; 83605; 83880; 84484; 85025; 85610; 85730; 99281; 99285; J7030

== ENCOUNTER 2017-02-22 14:03 | Inpatient (IN) | payer OTHER, BC ==
[~2017-02-22] VITALS: Ht 182.9 cm; Wt 119.0 kg
[~2017-02-22 14:03] MED LIST changes: -ASPIRIN325 MG PO; +CALCIUM 500 +1 EACH PO; +LITE COAT ASPI325 M1 PO; -SUPER CALCIUM600 MG PO; -VITAMIN D22000 UNIT PO; +VITAMIN D5000 UNI1 PO
[2017-02-22 15:03] LABS: BASOPHIL COUNT 0.1 K/uL (0-0.1); CARBON DIOXIDE (BICARBONATE) 29.8 MEQ/L (20-31); EOSINOPHIL (%) 0.1 % (0-5); IMMATURE GRANULOCYTE (%) 0.5 % (0.0-0.7); IMMATURE GRANULOCYTE COUNT 0.1 K/uL; INSTRUMENT ABS NEUTROPHIL CT 9.6 K/uL; LYMPHOCYTE COUNT 0.8 K/uL (1.0-2.8); MCHC 34.6 G/DL (30.0-36.0); MCV 98.1 FL (86-99); MEAN PLAT.VOLUME 12.1 uM^3 (9.0-12.4); MONOCYTE (%) 9.5 % (3-12); MONOCYTE COUNT 1.1 K/uL (0-0.8); NEUTROPHIL (%) 82.4 % (45-76); NEUTROPHIL COUNT 9.6 K/uL (1.8-6.4); PLATELET COUNT 154 K/uL (156-360); RBC DIS.WIDTH-CV 12.6 % (11.8-14.6); RBC DIS.WIDTH-SD 45.2 % (39-53); RED BLOOD COUNT 3.77 M/uL (4.00-5.50); WHITE BLOOD COUNT 11.6 K/uL (4.1-10.2)
[2017-02-22 15:17] LABS: CHLORIDE 94 mEq/L (99-109); POTASSIUM 4.3 mEq/L (3.7-5.4); SODIUM 134 mEq/L (136-147)
[2017-02-22 15:20] LABS: ANION GAP 15 MEQ/L (2-14)
[2017-02-22 15:21] LABS: TOTAL BILIRUBIN 1.5 mg/dL (0.0-1.0)
[2017-02-22 15:22] LABS: ALKALINE PHOSPHATASE 64 IU/L (3-129)
[2017-02-22 15:23] LABS: GFR ESTIMATE (CALCULATED) 37 mL/min/
[2017-02-22 15:24] LABS: UREA NITROGEN (BUN) 35 mg/dL (9-23)
[2017-02-22 15:27] LABS: GLUCOSE 648 mg/dL (70-99)
[2017-02-22 15:31] LABS: TROP-I INTERPRETATION POSITIVE
[2017-02-22 15:33] LABS: TROPONIN-I 7.65 ng/mL (0.0-0.30)
[2017-02-22 15:45] LABS: POINT-OF-CARE METER ID UU13113747
[2017-02-22 16:28] LABS: INTER. NORMALIZED RATIO 1.2; PROTHROMBIN TIME 13.2 SEC (10.2-12.9)
[2017-02-22 16:30] LABS: ADD MIUA? YES; BILIRUBIN NEGATIVE; BLOOD NEGATIVE; COLOR YELLOW ((YELLOW)); GLUCOSE (STRIP) >=500; KETONES 5; LEUKOCYTES NEGATIVE; NITRITE NEGATIVE; PROTEIN (STRIP) 100; SPECIFIC GRAVITY 1.026 (1.000-1.030); UROBILINOGEN 0.2 MG/DL (0.2-1.0)
[2017-02-22 16:31] LABS: PTT 27.7 SEC (25-37)
[2017-02-22 16:37] LABS: BACTERIA NONE SEEN /HPF; EPITHELIAL CELLS RARE /HPF; MUCUS NONE SEEN /LPF; RED BLOOD CELLS 0-5 /HPF (0-5); UCUL ADDED? NO; WHITE BLOOD CELLS 0-5 /HPF (0-5)
[2017-02-22] MEDS ORDERED: FUROSEMIDE40 MG PO ×2 (16:38)
[2017-02-22] MEDS ORDERED: VITAMIN B COMP1 EACH PO (16:41)
[2017-02-22] MEDS ORDERED: MUPIROCIN22 GM TP (16:42)
[2017-02-22] MEDS ORDERED: METOLAZONE5 MG PO (16:42)
[2017-02-22] MEDS ORDERED: CLEOCIN300 MG PO (16:42)
[2017-02-22] MEDS ORDERED: SUPER MULTIVIT1 EACH PO (16:43)
[2017-02-22 18:36] VITALS: BP 125/70
[2017-02-22 18:37] VITALS: BP 125/70
[2017-02-22 19:53] LABS: HDL CHOLESTEROL 37 MG/DL (Desirable>=40); LDL CHOLESTEROL 153 mg/dL (Desirable<100); NON-HDL CHOLESTEROL 184 mg/dL (Desirable<160); TOTAL CHOLESTEROL 221 mg/dL (Desirable<200); TRIGLYCERIDES 155 MG/DL (Normal: <150)
[2017-02-22 21:57] LABS: Estimated Average Glucose 258 mg/dL (70-123); HEMOGLOBIN A1c (GLYCOHEMOGLOB) 10.6 % HGB (Below 5.7)
[2017-02-23] VITALS (7 sets, daily range): BP systolic 89–135; BP diastolic 54–81
[2017-02-23 00:59] LABS: TROP-I INTERPRETATION POSITIVE
[2017-02-23 01:12] LABS: TROPONIN-I 10.71 ng/mL (0.0-0.30)
[2017-02-23 05:23] LABS: HEMATOCRIT 35.8 % (38.0-50.0); MCH 33.4 PG (29.0-34.0); MCHC 34.1 G/DL (30.0-36.0); MCV 98.1 FL (86-99); MEAN PLAT.VOLUME 12.1 uM^3 (9.0-12.4); PLATELET COUNT 153 K/uL (156-360); RBC DIS.WIDTH-CV 12.6 % (11.8-14.6); RBC DIS.WIDTH-SD 45.7 % (39-53); RED BLOOD COUNT 3.65 M/uL (4.00-5.50); WHITE BLOOD COUNT 13.6 K/uL (4.1-10.2)
[2017-02-23 05:56] LABS: TROP-I INTERPRETATION POSITIVE; TROPONIN-I 18.36 ng/mL (0.0-0.30)
[2017-02-23 07:58] LABS: POINT-OF-CARE METER ID UU13113781
[2017-02-23 11:14] LABS: POINT-OF-CARE METER ID UU13113781
[2017-02-23 14:22] LABS: INTER. NORMALIZED RATIO 1.2; PROTHROMBIN TIME 14.1 SEC (10.2-12.9)
[2017-02-23 14:27] LABS: PTT 34.6 SEC (25-37)
[2017-02-23 16:27] LABS: POINT-OF-CARE METER ID UU13113781
[2017-02-23 19:42] LABS: ANION GAP 10 MEQ/L (2-14); CHLORIDE 93 MEQ/L (99-109); SAMPLE HEMOLYSIS CHECK 0; SAMPLE ICTERIC CHECK 0; SAMPLE LIPEMIA CHECK 0; SODIUM 130 MEQ/L (136-147)
[2017-02-23 19:47] LABS: UREA NITROGEN (BUN) 48 mg/dL (9-23)
[2017-02-23 19:50] LABS: GLUCOSE 110 mg/dL (70-99)
[2017-02-23 19:51] LABS: GFR ESTIMATE (CALCULATED) 28 mL/min/; POTASSIUM 3.4 MEQ/L (3.7-5.4)
[2017-02-23 21:17] LABS: POINT-OF-CARE METER ID UU14174216
[2017-02-23 22:02] LABS: INTER. NORMALIZED RATIO 1.2; PROTHROMBIN TIME 13.7 SEC (10.2-12.9)
[2017-02-23 22:04] LABS: PTT 41.8 SEC (25-37)
[2017-02-24 00:24] VITALS: BP 89/53
[2017-02-24 02:19] LABS: POINT-OF-CARE METER ID UU13113781
[2017-02-24 04:00] VITALS: BP 90/51
[2017-02-24 04:34] LABS: POINT-OF-CARE METER ID UU13113698
[2017-02-24 06:02] LABS: ANION GAP 13 MEQ/L (2-14); CHLORIDE 93 MEQ/L (99-109); GFR ESTIMATE (CALCULATED) 21 mL/min/; GLUCOSE 127 mg/dL (70-99); POTASSIUM 3.8 MEQ/L (3.7-5.4); SAMPLE HEMOLYSIS CHECK 0; SAMPLE ICTERIC CHECK 0; SAMPLE LIPEMIA CHECK 0; SODIUM 131 MEQ/L (136-147); UREA NITROGEN (BUN) 53 mg/dL (9-23)
[2017-02-24 08:05] LABS: POINT-OF-CARE METER ID UU13113698; POINT-OF-CARE USER ID ENVKC36
[2017-02-24 08:21] VITALS: BP 99/54
[2017-02-24 11:27] VITALS: BP 100/53
[2017-02-24 11:30] LABS: POINT-OF-CARE METER ID UU14174216; POINT-OF-CARE USER ID ENVKC36
[2017-02-24 16:10] VITALS: BP 117/59
[2017-02-24 16:41] LABS: POINT-OF-CARE METER ID UU13113698; POINT-OF-CARE USER ID ENVKC36
[2017-02-24 20:30] VITALS: BP 117/62
[2017-02-25] VITALS (7 sets, daily range): BP systolic 95–124; BP diastolic 52–74
[2017-02-25 01:31] LABS: CHLORIDE 89 mEq/L (99-109); POTASSIUM 4.5 mEq/L (3.7-5.4); SODIUM 128 mEq/L (136-147)
[2017-02-25 01:34] LABS: ANION GAP 16 MEQ/L (2-14)
[2017-02-25 01:37] LABS: GFR ESTIMATE (CALCULATED) 17 mL/min/
[2017-02-25 01:38] LABS: UREA NITROGEN (BUN) 75 mg/dL (9-23)
[2017-02-25 01:43] LABS: GLUCOSE 423 mg/dL (70-99)
[2017-02-25 02:00] LABS: POINT-OF-CARE METER ID UU13113698
[2017-02-25 08:14] LABS: POINT-OF-CARE METER ID UU13113698; POINT-OF-CARE USER ID ENVKC36
[2017-02-25 11:46] LABS: POINT-OF-CARE METER ID UU13113781; POINT-OF-CARE USER ID ENVKC36
[2017-02-25 16:37] LABS: POINT-OF-CARE METER ID UU14174216; POINT-OF-CARE USER ID ENVKC36
[2017-02-25 20:14] LABS: POINT-OF-CARE METER ID UU13113698
[2017-02-25 20:42] LABS: POINT-OF-CARE METER ID UU13113698
[2017-02-25 20:42] LABS: POINT-OF-CARE METER ID UU14174216
[2017-02-25 20:42] LABS: POINT-OF-CARE METER ID UU13113747; POINT-OF-CARE USER ID LABGLH01
[2017-02-26 03:20] VITALS: BP 120/70
[2017-02-26 05:39] LABS: EOSINOPHIL (%) 1.5 % (0-5); EOSINOPHIL COUNT 0.1 K/uL (0-0.3); IMMATURE GRANULOCYTE (%) 0.8 % (0.0-0.7); IMMATURE GRANULOCYTE COUNT 0.1 K/uL; INSTRUMENT ABS NEUTROPHIL CT 7.1 K/uL; LYMPHOCYTE COUNT 0.8 K/uL (1.0-2.8); MCH 34.5 PG (29.0-34.0); MCV 98.7 FL (86-99); MEAN PLAT.VOLUME 12.7 uM^3 (9.0-12.4); MONOCYTE (%) 10.2 % (3-12); MONOCYTE COUNT 0.9 K/uL (0-0.8); NEUTROPHIL COUNT 7.1 K/uL (1.8-6.4); PLATELET COUNT 149 K/uL (156-360); RBC DIS.WIDTH-CV 12.5 % (11.8-14.6); RED BLOOD COUNT 3.04 M/uL (4.00-5.50); WHITE BLOOD COUNT 9.1 K/uL (4.1-10.2)
[2017-02-26 06:09] LABS: ANION GAP 13 MEQ/L (2-14); CHLORIDE 89 MEQ/L (99-109); GFR ESTIMATE (CALCULATED) 18 mL/min/; GLUCOSE 255 mg/dL (70-99); POTASSIUM 4.7 MEQ/L (3.7-5.4); SAMPLE HEMOLYSIS CHECK 0; SAMPLE ICTERIC CHECK 0; SAMPLE LIPEMIA CHECK 0; SODIUM 126 MEQ/L (136-147); UREA NITROGEN (BUN) 93 mg/dL (9-23)
[2017-02-26 07:45] LABS: POINT-OF-CARE METER ID UU13113698; POINT-OF-CARE USER ID NUTSLF44
[2017-02-26 08:15] VITALS: BP 126/76
[2017-02-26 10:18] LABS: POINT-OF-CARE METER ID UU13113781
[2017-02-26 10:34] LABS: POINT-OF-CARE METER ID UU14174216
[2017-02-26 11:33] LABS: POINT-OF-CARE METER ID UU13113698; POINT-OF-CARE USER ID NUTSLF44
[2017-02-26 12:37] VITALS: BP 137/76
[2017-02-26 16:45] VITALS: BP 135/72
[2017-02-26 17:08] LABS: POINT-OF-CARE METER ID UU13113698; POINT-OF-CARE USER ID NUTSLF44
[2017-02-26 19:30] VITALS: BP 115/75
[2017-02-26 21:33] LABS: POINT-OF-CARE METER ID UU13113781
[2017-02-26 23:45] VITALS: BP 117/69
[2017-02-27 02:17] LABS: POINT-OF-CARE METER ID UU13113781
[2017-02-27 03:39] VITALS: BP 118/59
[2017-02-27 06:08] LABS: ANION GAP 13 MEQ/L (2-14); CHLORIDE 92 MEQ/L (99-109); GFR ESTIMATE (CALCULATED) 26 mL/min/; POTASSIUM 4.6 MEQ/L (3.7-5.4); SAMPLE HEMOLYSIS CHECK 0; SAMPLE ICTERIC CHECK 0; SAMPLE LIPEMIA CHECK 0; SODIUM 130 MEQ/L (136-147)
[2017-02-27 06:09] LABS: GLUCOSE 84 mg/dL (70-99); UREA NITROGEN (BUN) 102 mg/dL (9-23)
[2017-02-27 07:21] LABS: POINT-OF-CARE METER ID UU13113698
[2017-02-27 08:22] VITALS: BP 131/75
[2017-02-27 11:10] LABS: ANTI-HEPATITIS B CORE (TOTAL) Nonreactive; HBCT INDEX 0.18
[2017-02-27 11:12] LABS: HBSG INDEX 0.19
[2017-02-27 11:13] LABS: HPCA INDEX 0.16
[2017-02-27 11:14] LABS: AHBS INDEX 0.13; HEPATITIS B SURFACE ANTIBODY Nonreactive
[2017-02-27 15:55] VITALS: BP 142/71
[2017-02-27 16:40] LABS: POINT-OF-CARE METER ID UU13113698; POINT-OF-CARE USER ID ENVKC36
[2017-02-27 19:05] VITALS: BP 135/77
[2017-02-27 21:22] LABS: POINT-OF-CARE METER ID UU13113781
[2017-02-28 00:35] VITALS: BP 116/61
[2017-02-28 01:38] LABS: POINT-OF-CARE METER ID UU13113698
[2017-02-28 05:00] VITALS: BP 131/73
[2017-02-28 05:27] LABS: HEMATOCRIT 32.5 % (38.0-50.0); MCH 34.2 PG (29.0-34.0); MCHC 33.8 G/DL (30.0-36.0); MCV 100.9 FL (86-99); MEAN PLAT.VOLUME 12.7 uM^3 (9.0-12.4); PLATELET COUNT 181 K/uL (156-360); RBC DIS.WIDTH-CV 12.5 % (11.8-14.6); RBC DIS.WIDTH-SD 46.6 % (39-53); RED BLOOD COUNT 3.22 M/uL (4.00-5.50); WHITE BLOOD COUNT 11.2 K/uL (4.1-10.2)
[2017-02-28 06:11] LABS: ANION GAP 11 MEQ/L (2-14); CHLORIDE 90 MEQ/L (99-109); GFR ESTIMATE (CALCULATED) 33 mL/min/; SAMPLE HEMOLYSIS CHECK 0; SAMPLE ICTERIC CHECK 0; SAMPLE LIPEMIA CHECK 0; SODIUM 127 MEQ/L (136-147); UREA NITROGEN (BUN) 84 mg/dL (9-23)
[2017-02-28 06:13] LABS: GLUCOSE 252 mg/dL (70-99)
[2017-02-28 07:20] LABS: POINT-OF-CARE METER ID UU14174216
[2017-02-28 08:16] VITALS: BP 135/75
[2017-02-28 11:24] LABS: POINT-OF-CARE METER ID UU13113781
[2017-02-28 15:28] VITALS: BP 133/69
[2017-02-28 16:34] LABS: POINT-OF-CARE METER ID UU13113698
[2017-02-28 21:12] LABS: POINT-OF-CARE METER ID UU14174216
[2017-02-28 21:30] VITALS: BP 131/69
[2017-03-01 00:39] VITALS: BP 111/60
[2017-03-01 00:49] LABS: POINT-OF-CARE METER ID UU13113698
[2017-03-01 04:38] LABS: POINT-OF-CARE METER ID UU13113698
[2017-03-01 04:47] VITALS: BP 129/70
[2017-03-01 05:21] LABS: POTASSIUM 4.5 mEq/L (3.7-5.4); SODIUM 133 mEq/L (136-147)
[2017-03-01 05:22] LABS: MAGNESIUM 2.5 mg/dL (1.3-2.7)
[2017-03-01 05:25] LABS: ANION GAP 12 MEQ/L (2-14); CHLORIDE 98 mEq/L (99-109); GLUCOSE 121 mg/dL (70-99)
[2017-03-01 05:27] LABS: GFR ESTIMATE (CALCULATED) 35 mL/min/
[2017-03-01 05:28] LABS: UREA NITROGEN (BUN) 64 mg/dL (9-23)
[2017-03-01 07:17] VITALS: BP 134/77
[2017-03-01 08:12] LABS: POINT-OF-CARE METER ID UU13113698
[2017-03-01 10:49] VITALS: BP 135/74
[2017-03-01 11:50] LABS: POINT-OF-CARE METER ID UU13113781
[2017-03-01 16:21] VITALS: BP 140/79
[2017-03-01 16:57] LABS: POINT-OF-CARE METER ID UU13113698; POINT-OF-CARE USER ID ENVKC36
[2017-03-01 19:25] VITALS: BP 132/72
[2017-03-01 20:42] LABS: POINT-OF-CARE METER ID UU14174216
[2017-03-02] VITALS (7 sets, daily range): BP systolic 122–140; BP diastolic 63–73
[2017-03-02 01:38] LABS: POINT-OF-CARE METER ID UU13113781
[2017-03-02 04:53] LABS: POINT-OF-CARE METER ID UU14314088
[2017-03-02 05:15] LABS: POINT-OF-CARE METER ID UU14314088
[2017-03-02 05:36] LABS: HEMATOCRIT 31.3 % (38.0-50.0); MCHC 33.5 G/DL (30.0-36.0); MCV 101.3 FL (86-99); MEAN PLAT.VOLUME 12.1 uM^3 (9.0-12.4); PLATELET COUNT 208 K/uL (156-360); RBC DIS.WIDTH-CV 12.6 % (11.8-14.6); RBC DIS.WIDTH-SD 46.7 % (39-53); RED BLOOD COUNT 3.09 M/uL (4.00-5.50); WHITE BLOOD COUNT 9.1 K/uL (4.1-10.2)
[2017-03-02 06:44] LABS: ANION GAP 11 MEQ/L (2-14); CHLORIDE 98 MEQ/L (99-109); GFR ESTIMATE (CALCULATED) 42 mL/min/; GLUCOSE 114 mg/dL (70-99); POTASSIUM 4.3 MEQ/L (3.7-5.4); SAMPLE HEMOLYSIS CHECK 0; SAMPLE ICTERIC CHECK 0; SAMPLE LIPEMIA CHECK 0; SODIUM 134 MEQ/L (136-147); UREA NITROGEN (BUN) 70 mg/dL (9-23)
[2017-03-02 07:35] LABS: BASE EXCESS 5.1 mEq/L (-3 to +3); BICARBONATE 29.9 mEq/L (22-26); CARBOXY HGB 1.6 % (0-5); METHEMOGLOBIN 1.3 % (0-1.5); PCO2 44 mm Hg (35-45); PO2 81 mm Hg (80-100); pH 7.44 (7.35-7.45)
[2017-03-02 07:36] LABS: COMMENTS - BLOOD GASES C+; DEVICE NC; O2 FLOW 1 L/MIN; SITE LR; TOTAL RESP RATE 22 resp/min
[2017-03-02 07:52] LABS: POINT-OF-CARE METER ID UU14314088
[2017-03-02 07:52] LABS: POINT-OF-CARE METER ID UU14314088
[2017-03-02 11:23] LABS: POINT-OF-CARE METER ID UU14174216
[2017-03-02 12:23] LABS: POINT-OF-CARE METER ID UU13113698
[2017-03-02 16:28] LABS: POINT-OF-CARE METER ID UU14174216
[2017-03-02 18:37] LABS: POINT-OF-CARE METER ID UU14174216
[2017-03-02 20:51] LABS: POINT-OF-CARE METER ID UU14174216
[2017-03-03 03:51] LABS: POINT-OF-CARE METER ID UU14314088
[2017-03-03 04:05] VITALS: BP 150/74
[2017-03-03 06:41] LABS: POINT-OF-CARE METER ID UU13113698
[2017-03-03 06:45] LABS: ANION GAP 8 MEQ/L (2-14); CHLORIDE 95 MEQ/L (99-109); GFR ESTIMATE (CALCULATED) 42 mL/min/; SAMPLE HEMOLYSIS CHECK 1; SAMPLE ICTERIC CHECK 0; SAMPLE LIPEMIA CHECK 0; SODIUM 129 MEQ/L (136-147); UREA NITROGEN (BUN) 74 mg/dL (9-23)
[2017-03-03 06:51] LABS: GLUCOSE 343 mg/dL (70-99); POTASSIUM 5.9 MEQ/L (3.7-5.4)
[2017-03-03 09:00] VITALS: BP 134/63
[2017-03-03 12:30] VITALS: BP 132/68
[2017-03-03 16:40] VITALS: BP 140/71
[2017-03-03 20:00] VITALS: BP 152/81
[2017-03-03 22:13] LABS: GLUCOSE 589 mg/dL (70-99)
[2017-03-03 23:55] VITALS: BP 132/74
[2017-03-04 02:57] LABS: POINT-OF-CARE METER ID UU14314088
[2017-03-04 04:00] VITALS: BP 134/58
[2017-03-04 04:17] LABS: POINT-OF-CARE METER ID UU13113698
[2017-03-04 07:24] LABS: POINT-OF-CARE METER ID UU14174216
[2017-03-04 07:56] LABS: POINT-OF-CARE METER ID UU13113698
[2017-03-04 11:24] LABS: POINT-OF-CARE METER ID UU13113698
[2017-03-04 11:34] VITALS: BP 147/72
[2017-03-04 11:48] LABS: ANION GAP 8 MEQ/L (2-14); CHLORIDE 98 MEQ/L (99-109); GFR ESTIMATE (CALCULATED) 49 mL/min/; SAMPLE HEMOLYSIS CHECK 0; SAMPLE ICTERIC CHECK 0; SAMPLE LIPEMIA CHECK 0; UREA NITROGEN (BUN) 66 mg/dL (9-23)
[2017-03-04 11:49] LABS: GLUCOSE 87 mg/dL (70-99); POTASSIUM 4.1 MEQ/L (3.7-5.4); SODIUM 137 MEQ/L (136-147)
[2017-03-04 14:05] LABS: POINT-OF-CARE METER ID UU13113698
[2017-03-04 16:19] LABS: POINT-OF-CARE METER ID UU13113698
[2017-03-04 17:11] VITALS: BP 155/77
[2017-03-04 20:54] LABS: POINT-OF-CARE METER ID UU14174216
[2017-03-04 20:55] VITALS: BP 155/77
[2017-03-04 22:27] LABS: POINT-OF-CARE METER ID UU13113698
[2017-03-04 22:49] LABS: POINT-OF-CARE METER ID UU14314088; POINT-OF-CARE USER ID NUTSLF44
[2017-03-04 22:51] LABS: POINT-OF-CARE METER ID UU14314088; POINT-OF-CARE USER ID NUTSLF44
[2017-03-04 22:51] LABS: POINT-OF-CARE METER ID UU13113698
[2017-03-05 00:12] VITALS: BP 156/79
[2017-03-05 05:37] LABS: POINT-OF-CARE METER ID UU14314088
[2017-03-05 05:38] LABS: HEMATOCRIT 33.2 % (38.0-50.0); MCH 32.6 PG (29.0-34.0); MCHC 32.5 G/DL (30.0-36.0); MCV 100.3 FL (86-99); MEAN PLAT.VOLUME 11.3 uM^3 (9.0-12.4); PLATELET COUNT 259 K/uL (156-360); RBC DIS.WIDTH-CV 12.4 % (11.8-14.6); RBC DIS.WIDTH-SD 45.8 % (39-53); RED BLOOD COUNT 3.31 M/uL (4.00-5.50); WHITE BLOOD COUNT 12.6 K/uL (4.1-10.2)
[2017-03-05 06:05] VITALS: BP 141/77
[2017-03-05 07:58] VITALS: BP 155/83
[2017-03-05 08:07] LABS: ANION GAP 11 MEQ/L (2-14); CHLORIDE 98 MEQ/L (99-109); GFR ESTIMATE (CALCULATED) 58 mL/min/; POTASSIUM 4.2 MEQ/L (3.7-5.4); SAMPLE HEMOLYSIS CHECK 0; SAMPLE ICTERIC CHECK 0; SAMPLE LIPEMIA CHECK 0; SODIUM 136 MEQ/L (136-147); UREA NITROGEN (BUN) 65 mg/dL (9-23)
[2017-03-05 08:08] LABS: GLUCOSE 312 mg/dL (70-99)
[2017-03-05 08:33] LABS: POINT-OF-CARE METER ID UU13113781
[2017-03-05] MEDS ORDERED: BUMETANIDE1 MG PO (09:03)
[2017-03-05] MEDS ORDERED: APRESOLINE10 MG PO (09:03)
[2017-03-05] MEDS ORDERED: ATORVASTATIN CA40 MG PO (09:03)
[2017-03-05] MEDS ORDERED: ZOLPIDEM TARTRAT5 MG PO (09:03)
[2017-03-05 11:45] LABS: POINT-OF-CARE METER ID UU13113781
== END 2017-03-05 12:17 | disposition home or self-care (01) | DRG 280 ==
LOC: EME 14:03 → 4EAST 16:45 → EDOF 16:45 → ENRESERV 16:49 → 4EAST 18:17
PROVIDERS: Emergency Medicine; Hospitalist; Internal Medicine; Internal Medicine Nephrology; Physician Assistant Medical
PROC: 02HV33Z Insertion of Infusion Device into Superior Vena Cava, Percutaneous Approach (ICD-10-PCS; principal; 2017-02-22)
PROC: B548ZZA Ultrasonography of Superior Vena Cava, Guidance (ICD-10-PCS; principal; 2017-02-22)
PROC: 5A1D70Z Performance of Urinary Filtration, Intermittent, Less than 6 Hours Per Day (ICD-10-PCS; principal; 2017-02-22)
PROC: 02H633Z Insertion of Infusion Device into Right Atrium, Percutaneous Approach (ICD-10-PCS; 2017-02-22)
DX: I21.4 Non-ST elevation (NSTEMI) myocardial infarction (principal); G93.49 Other encephalopathy; J96.01 Acute respiratory failure with hypoxia; N17.0 Acute kidney failure with tubular necrosis; I63.9 Cerebral infarction, unspecified; I50.43 Acute on chronic combined systolic (congestive) and diastolic (congestive) heart failure; E11.40 Type 2 diabetes mellitus with diabetic neuropathy, unspecified; R34 Anuria and oliguria; E11.65 Type 2 diabetes mellitus with hyperglycemia; E11.21 Type 2 diabetes mellitus with diabetic nephropathy; E11.22 Type 2 diabetes mellitus with diabetic chronic kidney disease; I42.0 Dilated cardiomyopathy; J44.1 Chronic obstructive pulmonary disease with (acute) exacerbation; E66.01 Morbid (severe) obesity due to excess calories; E87.1 Hypo-osmolality and hyponatremia; E83.39 Other disorders of phosphorus metabolism; N28.9 Disorder of kidney and ureter, unspecified; I13.0 Hypertensive heart and chronic kidney disease with heart failure and stage 1 through stage 4 chronic kidney disease, or unspecified chronic kidney disease; I25.5 Ischemic cardiomyopathy; E66.9 Obesity, unspecified; E78.5 Hyperlipidemia, unspecified; D63.1 Anemia in chronic kidney disease; I25.10 Atherosclerotic heart disease of native coronary artery without angina pectoris; N18.3 Chronic kidney disease, stage 3 (moderate); I25.2 Old myocardial infarction; G47.33 Obstructive sleep apnea (adult) (pediatric); F03.90 Unspecified dementia, unspecified severity, without behavioral disturbance, psychotic disturbance, mood disturbance, and anxiety; Z66 Do not resuscitate; Z87.891 Personal history of nicotine dependence; Z79.4 Long term (current) use of insulin; Z86.14 Personal history of Methicillin resistant Staphylococcus aureus infection; I69.354 Hemiplegia and hemiparesis following cerebral infarction affecting left non-dominant side; Z82.3 Family history of stroke; Z83.3 Family history of diabetes mellitus; Z91.15 Patient's noncompliance with renal dialysis; Z68.33 Body mass index [BMI] 33.0-33.9, adult; Z85.828 Personal history of other malignant neoplasm of skin; I49.3 Ventricular premature depolarization; Z80.9 Family history of malignant neoplasm, unspecified; F05 Delirium due to known physiological condition; E11.649 Type 2 diabetes mellitus with hypoglycemia without coma; N40.0 Benign prostatic hyperplasia without lower urinary tract symptoms
CPT/HCPCS: 36600; 70450; 71010; 71020; 76770; 80048; 80053; 80061; 80069; 81003; 82010; 82803; 82948; 83036; 83605; 83735; 83880; 84484; 84999; 85025; 85027; 85610; 85730; 86704; 86706; 86803; 87040; 87340; 92610 GN; 93005; 93306; 94640; 94640 76; 94760; 94799; 97530 GP; 99202; 99281; 99285; C1788; J1644; J1815; J1940; J2405

== ENCOUNTER 2017-03-12 10:11 | Inpatient (IN) | payer OTHER, BC ==
[~2017-03-12] VITALS: Ht 182.9 cm; Wt 103.7 kg
[~2017-03-12 10:11] MED LIST changes: +APRESOLINE10 MG PO; +ATORVASTATIN CA40 MG PO; +CLEOCIN300 MG PO; +MUPIROCIN22 GM TP; +SUPER MULTIVIT1 EACH PO; +VITAMIN B COMP1 EACH PO; +ZOLPIDEM TARTRAT5 MG PO
[2017-03-12 10:46] LABS: BASOPHIL COUNT 0.1 K/uL (0-0.1); EOSINOPHIL (%) 0.8 % (0-5); EOSINOPHIL COUNT 0.1 K/uL (0-0.3); IMMATURE GRANULOCYTE (%) 0.4 % (0.0-0.7); IMMATURE GRANULOCYTE COUNT 0.1 K/uL; INSTRUMENT ABS NEUTROPHIL CT 14.7 K/uL; LYMPHOCYTE COUNT 0.6 K/uL (1.0-2.8); MCHC 33.1 G/DL (30.0-36.0); MCV 99.7 FL (86-99); MEAN PLAT.VOLUME 11.6 uM^3 (9.0-12.4); MONOCYTE (%) 3.5 % (3-12); MONOCYTE COUNT 0.6 K/uL (0-0.8); NEUTROPHIL (%) 91.1 % (45-76); NEUTROPHIL COUNT 14.7 K/uL (1.8-6.4); PLATELET COUNT 255 K/uL (156-360); RBC DIS.WIDTH-CV 12.5 % (11.8-14.6); RBC DIS.WIDTH-SD 45.7 % (39-53); RED BLOOD COUNT 3.61 M/uL (4.00-5.50); WHITE BLOOD COUNT 16.2 K/uL (4.1-10.2)
[2017-03-12 10:52] LABS: INTER. NORMALIZED RATIO 1.2; PROTHROMBIN TIME 13.6 SEC (10.2-12.9)
[2017-03-12 10:56] LABS: CHLORIDE 98 mEq/L (99-109); POTASSIUM 4.8 mEq/L (3.7-5.4); PTT 25.7 SEC (25-37); SODIUM 136 mEq/L (136-147)
[2017-03-12 10:59] LABS: ANION GAP 10 MEQ/L (2-14); GLUCOSE 215 mg/dL (70-99)
[2017-03-12 11:02] LABS: GFR ESTIMATE (CALCULATED) 49 mL/min/
[2017-03-12 11:07] LABS: TROP-I INTERPRETATION NEGATIVE; TROPONIN-I 0.08 ng/mL (0.0-0.30); UREA NITROGEN (BUN) 55 mg/dL (9-23)
[2017-03-12 14:07] LABS: TROP-I INTERPRETATION NEGATIVE
[2017-03-12 14:15] LABS: HDL CHOLESTEROL 34 MG/DL (Desirable>=40); LDL CHOLESTEROL 41 mg/dL (Desirable<100); NON-HDL CHOLESTEROL 55 mg/dL (Desirable<160); TOTAL CHOLESTEROL 89 mg/dL (Desirable<200); TRIGLYCERIDES 72 MG/DL (Normal: <150)
[2017-03-12 14:50] VITALS: BP 158/95
[2017-03-12] MEDS ORDERED: BUMEX1 MG PO (16:22)
[2017-03-12 18:18] LABS: TROP-I INTERPRETATION NEGATIVE; TROPONIN-I 0.09 ng/mL (0.0-0.30)
[2017-03-12 22:03] LABS: POINT-OF-CARE METER ID UU13113725
[2017-03-12 23:44] VITALS: BP 135/66
[2017-03-13 06:34] LABS: INTER. NORMALIZED RATIO 1.4; PROTHROMBIN TIME 16.1 SEC (10.2-12.9)
[2017-03-13 06:39] LABS: ANION GAP 14 MEQ/L (2-14); CHLORIDE 91 MEQ/L (99-109); GFR ESTIMATE (CALCULATED) 45 mL/min/; POTASSIUM 4.8 MEQ/L (3.7-5.4); SAMPLE HEMOLYSIS CHECK 0; SAMPLE ICTERIC CHECK 0; SAMPLE LIPEMIA CHECK 0; SODIUM 136 MEQ/L (136-147); UREA NITROGEN (BUN) 63 mg/dL (9-23)
[2017-03-13 06:43] LABS: GLUCOSE 372 mg/dL (70-99)
[2017-03-13 06:50] VITALS: BP 132/72
[2017-03-13 09:08] LABS: HEMATOCRIT 33.2 % (38.0-50.0); MCH 33.1 PG (29.0-34.0); MCHC 32.8 G/DL (30.0-36.0); MCV 100.9 FL (86-99); PLATELET COUNT 259 K/uL (156-360); RBC DIS.WIDTH-CV 12.9 % (11.8-14.6); RBC DIS.WIDTH-SD 47.8 % (39-53); RED BLOOD COUNT 3.29 M/uL (4.00-5.50); WHITE BLOOD COUNT 21.3 K/uL (4.1-10.2)
[2017-03-13 11:33] VITALS: BP 115/70
[2017-03-13 15:21] VITALS: BP 126/68
[2017-03-13 17:54] LABS: POINT-OF-CARE METER ID UU13113774
[2017-03-13 17:54] LABS: POINT-OF-CARE METER ID UU13113725
[2017-03-13 17:54] LABS: POINT-OF-CARE METER ID UU13113774
[2017-03-13 18:35] LABS: GLUCOSE 542 mg/dL (70-99)
[2017-03-13 22:51] VITALS: BP 116/67
[2017-03-14 06:30] LABS: EOSINOPHIL (%) 0 % (0-5); HEMATOCRIT 30.5 % (38.0-50.0); IMMATURE GRANULOCYTE (%) 1.4 % (0.0-0.7); IMMATURE GRANULOCYTE COUNT 0.4 K/uL; INSTRUMENT ABS NEUTROPHIL CT 21.9 K/uL; LYMPHOCYTE COUNT 0.6 K/uL (1.0-2.8); MCH 32.3 PG (29.0-34.0); MCHC 32.8 G/DL (30.0-36.0); MCV 98.4 FL (86-99); MEAN PLAT.VOLUME 11.8 uM^3 (9.0-12.4); MONOCYTE (%) 5.5 % (3-12); MONOCYTE COUNT 1.3 K/uL (0-0.8); NEUTROPHIL (%) 90.4 % (45-76); NEUTROPHIL COUNT 21.9 K/uL (1.8-6.4); PLATELET COUNT 229 K/uL (156-360); RBC DIS.WIDTH-SD 46.4 % (39-53); WHITE BLOOD COUNT 24.2 K/uL (4.1-10.2)
[2017-03-14 07:30] LABS: ANION GAP 12 MEQ/L (2-14); CHLORIDE 90 MEQ/L (99-109); GFR ESTIMATE (CALCULATED) 31 mL/min/; POTASSIUM 4.4 MEQ/L (3.7-5.4); SAMPLE HEMOLYSIS CHECK 0; SAMPLE ICTERIC CHECK 0; SAMPLE LIPEMIA CHECK 0; SODIUM 132 MEQ/L (136-147); UREA NITROGEN (BUN) 87 mg/dL (9-23)
[2017-03-14 07:31] LABS: GLUCOSE 455 mg/dL (70-99)
[2017-03-14 08:25] VITALS: BP 122/74
[2017-03-14 13:30] VITALS: BP 130/75
[2017-03-14 13:31] LABS: ADD MIUA? YES; BILIRUBIN NEGATIVE; BLOOD NEGATIVE; COLOR YELLOW ((YELLOW)); GLUCOSE (STRIP) >=500; KETONES NEGATIVE; LEUKOCYTES LARGE; NITRITE NEGATIVE; PROTEIN (STRIP) 30; SPECIFIC GRAVITY 1.015 (1.000-1.030); UROBILINOGEN 0.2 MG/DL (0.2-1.0)
[2017-03-14 13:37] LABS: BACTERIA 2+ /HPF; CALCIUM OXALATE CRYSTALS 1+ /HPF; EPITHELIAL CELLS RARE /HPF; HYALINE CASTS 0-5 /LPF; MUCUS TRACE /LPF; RED BLOOD CELLS 0-5 /HPF (0-5); WHITE BLOOD CELLS TNTC /HPF (0-5); WHITE BLOOD CELLS CLUMP MOD /HPF (0-5)
[2017-03-14 14:48] LABS: HBSG INDEX 0.23; HPCA INDEX 0.14
[2017-03-14 14:49] LABS: ANTI-HEPATITIS B CORE (TOTAL) Nonreactive; HBCT INDEX 0.18; HEPATITIS B SURFACE ANTIBODY Nonreactive
[2017-03-14 17:08] LABS: POINT-OF-CARE METER ID UU13113681; POINT-OF-CARE USER ID DROKMM72
[2017-03-14 19:16] VITALS: BP 126/82
[2017-03-14 20:09] VITALS: BP 132/82
[2017-03-14 21:10] LABS: POINT-OF-CARE METER ID UU13113725
[2017-03-14 22:15] LABS: POINT-OF-CARE METER ID UU13113725
[2017-03-14 22:34] VITALS: BP 153/67
[2017-03-15 03:33] VITALS: BP 132/74
[2017-03-15 05:52] LABS: POINT-OF-CARE METER ID UU13113725
[2017-03-15 06:03] LABS: EOSINOPHIL (%) 0.1 % (0-5); HEMATOCRIT 31.7 % (38.0-50.0); IMMATURE GRANULOCYTE (%) 0.7 % (0.0-0.7); IMMATURE GRANULOCYTE COUNT 0.1 K/uL; INSTRUMENT ABS NEUTROPHIL CT 14.7 K/uL; LYMPHOCYTE COUNT 0.6 K/uL (1.0-2.8); MCH 33.3 PG (29.0-34.0); MCHC 33.4 G/DL (30.0-36.0); MCV 99.7 FL (86-99); MEAN PLAT.VOLUME 12.2 uM^3 (9.0-12.4); MONOCYTE (%) 7.6 % (3-12); MONOCYTE COUNT 1.3 K/uL (0-0.8); NEUTROPHIL (%) 88.2 % (45-76); NEUTROPHIL COUNT 14.7 K/uL (1.8-6.4); PLATELET COUNT 217 K/uL (156-360); RBC DIS.WIDTH-CV 13.1 % (11.8-14.6); RBC DIS.WIDTH-SD 47.7 % (39-53); RED BLOOD COUNT 3.18 M/uL (4.00-5.50); WHITE BLOOD COUNT 16.7 K/uL (4.1-10.2)
[2017-03-15 06:21] LABS: ANION GAP 11 MEQ/L (2-14); CHLORIDE 96 MEQ/L (99-109); GFR ESTIMATE (CALCULATED) 27 mL/min/; GLUCOSE 240 mg/dL (70-99); POTASSIUM 4.6 MEQ/L (3.7-5.4); SAMPLE HEMOLYSIS CHECK 0; SAMPLE ICTERIC CHECK 0; SAMPLE LIPEMIA CHECK 0; SODIUM 136 MEQ/L (136-147); UREA NITROGEN (BUN) 84 mg/dL (9-23)
[2017-03-15 07:45] VITALS: BP 122/75
[2017-03-15 09:23] LABS: POINT-OF-CARE METER ID UU13113725
[2017-03-15 10:44] LABS: COMMENTS - BLOOD GASES A+C+; DEVICE NC; O2 FLOW 2 L/MIN; SITE LR; TOTAL RESP RATE 24 resp/min
[2017-03-15 10:45] LABS: BASE EXCESS 4.2 mEq/L (-3 to +3); BICARBONATE 29.7 mEq/L (22-26); CARBOXY HGB 1.9 % (0-5); HEMOGLOBIN 10.4 (12.5-16.6); METHEMOGLOBIN 1.3 % (0-1.5); PCO2 48 mm Hg (35-45); PO2 42 mm Hg (80-100)
[2017-03-15 14:24] LABS: POINT-OF-CARE METER ID UU13113725
[2017-03-15 14:25] LABS: POINT-OF-CARE METER ID UU13113725
[2017-03-15 14:25] LABS: POINT-OF-CARE METER ID UU13113725
[2017-03-15 14:25] LABS: POINT-OF-CARE METER ID UU13113725
[2017-03-15 14:33] LABS: POINT-OF-CARE METER ID UU13113774
[2017-03-15 14:33] LABS: POINT-OF-CARE METER ID UU13113725
[2017-03-15 15:00] VITALS: BP 116/71
[2017-03-15 15:11] LABS: MAGNESIUM 2.3 mg/dl (1.3-2.7); POTASSIUM 4.8 MEQ/L (3.7-5.4)
[2017-03-15 15:25] LABS: POINT-OF-CARE METER ID UU13113774
[2017-03-15 20:05] VITALS: BP 115/69
[2017-03-15 21:11] LABS: POINT-OF-CARE METER ID UU13113725
[2017-03-15 23:45] VITALS: BP 103/64
[2017-03-16 03:54] VITALS: BP 111/63
[2017-03-16 06:03] LABS: EOSINOPHIL (%) 0.5 % (0-5); EOSINOPHIL COUNT 0.1 K/uL (0-0.3); HEMATOCRIT 32.9 % (38.0-50.0); IMMATURE GRANULOCYTE (%) 0.3 % (0.0-0.7); INSTRUMENT ABS NEUTROPHIL CT 10.5 K/uL; LYMPHOCYTE COUNT 0.8 K/uL (1.0-2.8); MCH 32.2 PG (29.0-34.0); MCHC 32.2 G/DL (30.0-36.0); MEAN PLAT.VOLUME 11.9 uM^3 (9.0-12.4); MONOCYTE (%) 10.8 % (3-12); MONOCYTE COUNT 1.4 K/uL (0-0.8); NEUTROPHIL (%) 81.7 % (45-76); NEUTROPHIL COUNT 10.5 K/uL (1.8-6.4); PLATELET COUNT 213 K/uL (156-360); RBC DIS.WIDTH-CV 13.1 % (11.8-14.6); RBC DIS.WIDTH-SD 48.2 % (39-53); RED BLOOD COUNT 3.29 M/uL (4.00-5.50); WHITE BLOOD COUNT 12.8 K/uL (4.1-10.2)
[2017-03-16 06:04] LABS: POINT-OF-CARE METER ID UU13113725
[2017-03-16 06:25] LABS: ANION GAP 13 MEQ/L (2-14); CHLORIDE 98 MEQ/L (99-109); GFR ESTIMATE (CALCULATED) 24 mL/min/; GLUCOSE 87 mg/dL (70-99); POTASSIUM 4.4 MEQ/L (3.7-5.4); SAMPLE HEMOLYSIS CHECK 0; SAMPLE ICTERIC CHECK 0; SAMPLE LIPEMIA CHECK 0; SODIUM 137 MEQ/L (136-147); UREA NITROGEN (BUN) 79 mg/dL (9-23); VANCOMYCIN, TROUGH 26.6 MCG/ML (10-20)
[2017-03-16 07:17] VITALS: BP 117/69
[2017-03-16 08:47] LABS: Estimated Average Glucose 263 mg/dL (70-123); HEMOGLOBIN A1c (GLYCOHEMOGLOB) 10.8 % HGB (Below 5.7)
[2017-03-16 12:59] LABS: POINT-OF-CARE METER ID UU13113774
[2017-03-16 16:04] LABS: POINT-OF-CARE METER ID UU13113774
[2017-03-16 17:05] VITALS: BP 125/66
[2017-03-16 19:06] VITALS: BP 106/59
[2017-03-16 19:14] LABS: METH RESISTANT S AUREUS PCR NEGATIVE (NEGATIVE)
[2017-03-16 19:17] LABS: PROBE CHECK PASS; SPECIMEN PROCESSING CONTROL PASS
[2017-03-16 21:18] LABS: POINT-OF-CARE METER ID UU13113725
[2017-03-16 21:50] VITALS: BP 116/62
[2017-03-16 23:19] VITALS: BP 102/69
[2017-03-17 04:32] VITALS: BP 115/62
[2017-03-17 05:52] LABS: POINT-OF-CARE METER ID UU13113774
[2017-03-17 06:07] LABS: EOSINOPHIL (%) 0.9 % (0-5); EOSINOPHIL COUNT 0.1 K/uL (0-0.3); HEMATOCRIT 31.7 % (38.0-50.0); IMMATURE GRANULOCYTE (%) 0.4 % (0.0-0.7); IMMATURE GRANULOCYTE COUNT 0.1 K/uL; INSTRUMENT ABS NEUTROPHIL CT 9.1 K/uL; LYMPHOCYTE COUNT 0.7 K/uL (1.0-2.8); MCH 32.2 PG (29.0-34.0); MCHC 32.2 G/DL (30.0-36.0); MEAN PLAT.VOLUME 12.2 uM^3 (9.0-12.4); MONOCYTE (%) 12.2 % (3-12); MONOCYTE COUNT 1.4 K/uL (0-0.8); NEUTROPHIL (%) 80.5 % (45-76); NEUTROPHIL COUNT 9.1 K/uL (1.8-6.4); PLATELET COUNT 201 K/uL (156-360); RBC DIS.WIDTH-CV 13.2 % (11.8-14.6); RBC DIS.WIDTH-SD 48.6 % (39-53); RED BLOOD COUNT 3.17 M/uL (4.00-5.50); WHITE BLOOD COUNT 11.3 K/uL (4.1-10.2)
[2017-03-17 06:33] LABS: ANION GAP 11 MEQ/L (2-14); CHLORIDE 99 MEQ/L (99-109); GFR ESTIMATE (CALCULATED) 24 mL/min/; POTASSIUM 4.5 MEQ/L (3.7-5.4); SAMPLE HEMOLYSIS CHECK 0; SAMPLE ICTERIC CHECK 0; SAMPLE LIPEMIA CHECK 0; SODIUM 137 MEQ/L (136-147); UREA NITROGEN (BUN) 60 mg/dL (9-23); VANCOMYCIN, TROUGH 16.6 MCG/ML (10-20)
[2017-03-17 06:35] LABS: GLUCOSE 172 mg/dL (70-99)
[2017-03-17 07:30] VITALS: BP 108/64
[2017-03-17 11:04] LABS: POINT-OF-CARE METER ID UU13113725
[2017-03-17 11:21] VITALS: BP 110/68
[2017-03-17 16:03] LABS: POINT-OF-CARE METER ID UU13113774
[2017-03-17 16:59] VITALS: BP 104/68
[2017-03-17 18:46] VITALS: BP 121/65
[2017-03-17 21:12] LABS: POINT-OF-CARE METER ID UU13113725
[2017-03-17 22:53] VITALS: BP 128/56
[2017-03-18 03:41] VITALS: BP 121/68
[2017-03-18 06:00] LABS: EOSINOPHIL COUNT 0.2 K/uL (0-0.3); HEMATOCRIT 31.4 % (38.0-50.0); IMMATURE GRANULOCYTE (%) 0.6 % (0.0-0.7); IMMATURE GRANULOCYTE COUNT 0.1 K/uL; INSTRUMENT ABS NEUTROPHIL CT 8.8 K/uL; LYMPHOCYTE COUNT 0.7 K/uL (1.0-2.8); MCHC 33.1 G/DL (30.0-36.0); MCV 99.7 FL (86-99); MEAN PLAT.VOLUME 12.1 uM^3 (9.0-12.4); MONOCYTE (%) 12.7 % (3-12); MONOCYTE COUNT 1.4 K/uL (0-0.8); NEUTROPHIL (%) 78.4 % (45-76); NEUTROPHIL COUNT 8.8 K/uL (1.8-6.4); PLATELET COUNT 181 K/uL (156-360); RBC DIS.WIDTH-CV 13.2 % (11.8-14.6); RBC DIS.WIDTH-SD 48.5 % (39-53); RED BLOOD COUNT 3.15 M/uL (4.00-5.50); WHITE BLOOD COUNT 11.3 K/uL (4.1-10.2)
[2017-03-18 06:00] LABS: POINT-OF-CARE METER ID UU13113725
[2017-03-18 06:28] LABS: ANION GAP 11 MEQ/L (2-14); CHLORIDE 99 MEQ/L (99-109); GFR ESTIMATE (CALCULATED) 23 mL/min/; GLUCOSE 134 mg/dL (70-99); POTASSIUM 4.3 MEQ/L (3.7-5.4); SAMPLE HEMOLYSIS CHECK 0; SAMPLE ICTERIC CHECK 0; SAMPLE LIPEMIA CHECK 0; SODIUM 136 MEQ/L (136-147); UREA NITROGEN (BUN) 76 mg/dL (9-23)
[2017-03-18 07:36] VITALS: BP 132/74
[2017-03-18 11:36] LABS: POINT-OF-CARE METER ID UU13113725
[2017-03-18 11:48] VITALS: BP 129/66
[2017-03-18 16:03] LABS: POINT-OF-CARE METER ID UU13113725
[2017-03-18 16:08] VITALS: BP 144/77
[2017-03-18 19:28] VITALS: BP 144/77
[2017-03-18 21:02] LABS: POINT-OF-CARE METER ID UU13113774
[2017-03-18 23:25] VITALS: BP 133/64
[2017-03-19 05:50] LABS: POINT-OF-CARE METER ID UU13113774
[2017-03-19 06:33] LABS: POINT-OF-CARE METER ID UU13113774
[2017-03-19 07:09] LABS: POINT-OF-CARE METER ID UU13113774
[2017-03-19 07:45] VITALS: BP 134/66
[2017-03-19 07:55] LABS: EOSINOPHIL (%) 3.7 % (0-5); EOSINOPHIL COUNT 0.4 K/uL (0-0.3); IMMATURE GRANULOCYTE (%) 0.9 % (0.0-0.7); IMMATURE GRANULOCYTE COUNT 0.1 K/uL; INSTRUMENT ABS NEUTROPHIL CT 9.1 K/uL; LYMPHOCYTE COUNT 0.6 K/uL (1.0-2.8); MCH 32.2 PG (29.0-34.0); MCHC 32.6 G/DL (30.0-36.0); MCV 98.7 FL (86-99); MEAN PLAT.VOLUME 11.7 uM^3 (9.0-12.4); MONOCYTE COUNT 1.3 K/uL (0-0.8); NEUTROPHIL (%) 79.3 % (45-76); NEUTROPHIL COUNT 9.1 K/uL (1.8-6.4); PLATELET COUNT 206 K/uL (156-360); RBC DIS.WIDTH-CV 13.3 % (11.8-14.6); RBC DIS.WIDTH-SD 47.6 % (39-53); RED BLOOD COUNT 3.14 M/uL (4.00-5.50); WHITE BLOOD COUNT 11.5 K/uL (4.1-10.2)
[2017-03-19 08:07] LABS: ANION GAP 9 MEQ/L (2-14); CHLORIDE 97 MEQ/L (99-109); POTASSIUM 3.8 MEQ/L (3.7-5.4); SAMPLE HEMOLYSIS CHECK 0; SAMPLE ICTERIC CHECK 0; SAMPLE LIPEMIA CHECK 0; SODIUM 135 MEQ/L (136-147)
[2017-03-19 08:13] LABS: GFR ESTIMATE (CALCULATED) 27 mL/min/; GLUCOSE 135 mg/dL (70-99); UREA NITROGEN (BUN) 88 mg/dL (9-23)
[2017-03-19 12:08] LABS: POINT-OF-CARE METER ID UU13113774
[2017-03-19 12:13] VITALS: BP 136/68
[2017-03-19 16:28] LABS: POINT-OF-CARE METER ID UU13113725
[2017-03-19 17:00] VITALS: BP 136/68
[2017-03-19 19:22] VITALS: BP 139/64
[2017-03-19 21:24] LABS: POINT-OF-CARE METER ID UU13113725
[2017-03-19 23:39] VITALS: BP 129/71
[2017-03-20 01:42] LABS: POINT-OF-CARE METER ID UU13113725
[2017-03-20 02:15] LABS: POINT-OF-CARE METER ID UU13113725; POINT-OF-CARE USER ID 608261329
[2017-03-20 03:42] VITALS: BP 106/57
[2017-03-20 04:59] LABS: C DIFF TOXIN NEGATIVE (NEGATIVE)
[2017-03-20 05:03] LABS: PROBE CHECK PASS; SPECIMEN PROCESSING CONTROL PASS
[2017-03-20 05:40] LABS: POINT-OF-CARE METER ID UU13113774
[2017-03-20 06:16] LABS: ANION GAP 9 MEQ/L (2-14); CHLORIDE 99 MEQ/L (99-109); GFR ESTIMATE (CALCULATED) 33 mL/min/; GLUCOSE 122 mg/dL (70-99); POTASSIUM 4.3 MEQ/L (3.7-5.4); SAMPLE HEMOLYSIS CHECK 0; SAMPLE ICTERIC CHECK 0; SAMPLE LIPEMIA CHECK 0; SODIUM 136 MEQ/L (136-147); UREA NITROGEN (BUN) 55 mg/dL (9-23)
[2017-03-20 06:29] VITALS: BP 125/71
[2017-03-20 06:38] LABS: BASE EXCESS 3.4 mEq/L (-3 to +3); BICARBONATE 28.5 mEq/L (22-26); CARBOXY HGB 1.9 % (0-5); DEVICE NC; METHEMOGLOBIN 1.5 % (0-1.5); O2 FLOW 3 L/MIN; PCO2 45 mm Hg (35-45); PO2 106 mm Hg (80-100); SITE LR; pH 7.41 (7.35-7.45)
[2017-03-20 06:45] LABS: POINT-OF-CARE METER ID UU13113725
[2017-03-20 06:58] LABS: EOSINOPHIL COUNT 0.3 K/uL (0-0.3); HEMATOCRIT 31.2 % (38.0-50.0); IMMATURE GRANULOCYTE (%) 1.5 % (0.0-0.7); IMMATURE GRANULOCYTE COUNT 0.2 K/uL; INSTRUMENT ABS NEUTROPHIL CT 7.7 K/uL; LYMPHOCYTE COUNT 0.9 K/uL (1.0-2.8); MCH 32.8 PG (29.0-34.0); MCV 99.4 FL (86-99); MEAN PLAT.VOLUME 12.1 uM^3 (9.0-12.4); MONOCYTE (%) 10.2 % (3-12); NEUTROPHIL COUNT 7.7 K/uL (1.8-6.4); PLATELET COUNT 213 K/uL (156-360); RBC DIS.WIDTH-CV 13.3 % (11.8-14.6); RBC DIS.WIDTH-SD 48.1 % (39-53); RED BLOOD COUNT 3.14 M/uL (4.00-5.50); WHITE BLOOD COUNT 10.1 K/uL (4.1-10.2)
[2017-03-20 07:09] LABS: ALKALINE PHOSPHATASE 208 IU/L (3-129); DIRECT BILIRUBIN 0.2 mg/dL (0.0-0.3); MAGNESIUM 2.2 mg/dl (1.3-2.7); TOTAL BILIRUBIN 0.5 MG/DL (0.0-1.0)
[2017-03-20 07:57] LABS: TROPONIN-I 0.68 ng/mL (0.0-0.30)
[2017-03-20 07:58] LABS: TROP-I INTERPRETATION POSITIVE
[2017-03-20 11:24] LABS: POINT-OF-CARE METER ID UU13113774
[2017-03-20 12:31] LABS: POINT-OF-CARE METER ID UU13113774
[2017-03-20 15:41] VITALS: BP 114/60
[2017-03-20 15:54] LABS: POINT-OF-CARE METER ID UU13113725
[2017-03-20 21:32] LABS: POINT-OF-CARE METER ID UU13113725
[2017-03-21 00:09] VITALS: BP 123/62
[2017-03-21 05:48] LABS: POINT-OF-CARE METER ID UU13113725
[2017-03-21 07:12] VITALS: BP 123/56
[2017-03-21 08:14] LABS: EOSINOPHIL (%) 4.4 % (0-5); EOSINOPHIL COUNT 0.4 K/uL (0-0.3); HEMATOCRIT 29.6 % (38.0-50.0); IMMATURE GRANULOCYTE (%) 2.8 % (0.0-0.7); IMMATURE GRANULOCYTE COUNT 0.3 K/uL; INSTRUMENT ABS NEUTROPHIL CT 7.3 K/uL; LYMPHOCYTE COUNT 0.8 K/uL (1.0-2.8); MCH 31.9 PG (29.0-34.0); MCHC 32.4 G/DL (30.0-36.0); MCV 98.3 FL (86-99); MEAN PLAT.VOLUME 11.7 uM^3 (9.0-12.4); MONOCYTE (%) 9.3 % (3-12); MONOCYTE COUNT 0.9 K/uL (0-0.8); NEUTROPHIL (%) 74.9 % (45-76); NEUTROPHIL COUNT 7.3 K/uL (1.8-6.4); PLATELET COUNT 215 K/uL (156-360); RBC DIS.WIDTH-CV 13.4 % (11.8-14.6); RBC DIS.WIDTH-SD 48.3 % (39-53); RED BLOOD COUNT 3.01 M/uL (4.00-5.50); WHITE BLOOD COUNT 9.8 K/uL (4.1-10.2)
[2017-03-21 08:24] LABS: ANION GAP 7 MEQ/L (2-14); CHLORIDE 97 MEQ/L (99-109); POTASSIUM 4.1 MEQ/L (3.7-5.4); SAMPLE HEMOLYSIS CHECK 0; SAMPLE ICTERIC CHECK 0; SAMPLE LIPEMIA CHECK 0; SODIUM 134 MEQ/L (136-147)
[2017-03-21 08:36] LABS: GFR ESTIMATE (CALCULATED) 30 mL/min/; UREA NITROGEN (BUN) 63 mg/dL (9-23)
[2017-03-21 08:37] LABS: GLUCOSE 280 mg/dL (70-99)
[2017-03-21 11:55] VITALS: BP 130/70
[2017-03-21 12:12] VITALS: BP 134/72
[2017-03-21 12:25] LABS: POINT-OF-CARE METER ID UU13113725
[2017-03-21 15:54] LABS: POINT-OF-CARE METER ID UU13113774
[2017-03-21 17:10] VITALS: BP 130/70
[2017-03-21 21:31] LABS: POINT-OF-CARE METER ID UU13113774
[2017-03-22] VITALS (18 sets, daily range): BP systolic 120–150; BP diastolic 77–105
[2017-03-22 06:07] LABS: BASOPHIL COUNT 0.1 K/uL (0-0.1); EOSINOPHIL (%) 3.2 % (0-5); EOSINOPHIL COUNT 0.3 K/uL (0-0.3); HEMATOCRIT 30.5 % (38.0-50.0); IMMATURE GRANULOCYTE (%) 2.5 % (0.0-0.7); IMMATURE GRANULOCYTE COUNT 0.3 K/uL; INSTRUMENT ABS NEUTROPHIL CT 7.5 K/uL; MCH 32.7 PG (29.0-34.0); MCHC 33.1 G/DL (30.0-36.0); MCV 98.7 FL (86-99); MEAN PLAT.VOLUME 11.7 uM^3 (9.0-12.4); MONOCYTE (%) 8.9 % (3-12); MONOCYTE COUNT 0.9 K/uL (0-0.8); NEUTROPHIL (%) 75.1 % (45-76); NEUTROPHIL COUNT 7.5 K/uL (1.8-6.4); PLATELET COUNT 222 K/uL (156-360); RBC DIS.WIDTH-CV 13.3 % (11.8-14.6); RBC DIS.WIDTH-SD 48.3 % (39-53); RED BLOOD COUNT 3.09 M/uL (4.00-5.50)
[2017-03-22 06:11] LABS: POINT-OF-CARE METER ID UU13113725
[2017-03-22 06:35] LABS: ANION GAP 9 MEQ/L (2-14); CHLORIDE 95 MEQ/L (99-109); GFR ESTIMATE (CALCULATED) 33 mL/min/; GLUCOSE 263 mg/dL (70-99); POTASSIUM 4.1 MEQ/L (3.7-5.4); SAMPLE HEMOLYSIS CHECK 0; SAMPLE ICTERIC CHECK 0; SAMPLE LIPEMIA CHECK 0; SODIUM 133 MEQ/L (136-147); UREA NITROGEN (BUN) 39 mg/dL (9-23)
[2017-03-22 07:56] LABS: POINT-OF-CARE METER ID UU13113774
[2017-03-22 08:10] LABS: BASE EXCESS 5.6 mEq/L (-3 to +3); BICARBONATE 29.8 mEq/L (22-26); CARBOXY HGB 2.2 % (0-5); METHEMOGLOBIN 1.1 % (0-1.5); PCO2 41 mm Hg (35-45); pH 7.47 (7.35-7.45)
[2017-03-22 08:11] LABS: COMMENTS - BLOOD GASES A+C+; DEVICE NC; O2 FLOW 1 L/MIN; PO2 75 mm Hg (80-100); SITE LR; TOTAL RESP RATE 13 resp/min
[2017-03-22 08:29] LABS: INTER. NORMALIZED RATIO 1.3; PROTHROMBIN TIME 14.5 SEC (10.2-12.9)
[2017-03-22 08:31] LABS: PTT 28.1 SEC (25-37)
[2017-03-22 11:44] LABS: METH RESISTANT S AUREUS PCR NEGATIVE (NEGATIVE)
[2017-03-22 11:46] LABS: PROBE CHECK PASS; SPECIMEN PROCESSING CONTROL PASS
[2017-03-22 18:55] LABS: POINT-OF-CARE METER ID UU14162636
[2017-03-23] VITALS (17 sets, daily range): BP systolic 0–149; BP diastolic 0–88
[2017-03-23 00:54] LABS: POINT-OF-CARE METER ID UU14314083
[2017-03-23 05:07] LABS: POINT-OF-CARE METER ID UU13113803
[2017-03-23 07:58] LABS: EOSINOPHIL (%) 0.1 % (0-5); IMMATURE GRANULOCYTE (%) 1.9 % (0.0-0.7); IMMATURE GRANULOCYTE COUNT 0.3 K/uL; INSTRUMENT ABS NEUTROPHIL CT 14.8 K/uL; LYMPHOCYTE COUNT 0.6 K/uL (1.0-2.8); MCH 31.2 PG (29.0-34.0); MCHC 32.6 G/DL (30.0-36.0); MCV 95.7 FL (86-99); NEUTROPHIL COUNT 14.8 K/uL (1.8-6.4); PLATELET COUNT 275 K/uL (156-360); RBC DIS.WIDTH-CV 13.5 % (11.8-14.6); RED BLOOD COUNT 3.24 M/uL (4.00-5.50); WHITE BLOOD COUNT 16.8 K/uL (4.1-10.2)
[2017-03-23 08:15] LABS: ANION GAP 10 MEQ/L (2-14); CHLORIDE 96 MEQ/L (99-109); GFR ESTIMATE (CALCULATED) 31 mL/min/; GLUCOSE 256 mg/dL (70-99); MAGNESIUM 2.1 mg/dl (1.3-2.7); POTASSIUM 4.3 MEQ/L (3.7-5.4); SAMPLE HEMOLYSIS CHECK 0; SAMPLE ICTERIC CHECK 0; SAMPLE LIPEMIA CHECK 0; SODIUM 135 MEQ/L (136-147); UREA NITROGEN (BUN) 54 mg/dL (9-23)
[2017-03-23 13:27] LABS: POINT-OF-CARE METER ID UU14314082
[2017-03-23] MEDS ORDERED: MORPHINE S10 MG/5 ML PO (15:45)
[2017-03-23] MEDS ORDERED: ATIVAN INTE2 MG/1 ML PO (15:45)
[2017-03-23] MEDS ORDERED: ANASPAZ0.125 MG PO (15:45)
== END 2017-03-23 18:19 | disposition hospice, home (50) | DRG 280 ==
LOC: EME 10:11 → 5EAST 12:53 → EDOF 12:53 → 4WEST 12:53 → ENRESERV 12:59 → EDOF 13:10 → ENRESERV 13:41 → 5EAST 14:36 → 4WEST 03-22 09:07
PROVIDERS: Emergency Medicine; Hospitalist; Internal Medicine Nephrology; Obstetrics & Gynecology; Student in an Organized Health Care Education/Training Program
PROC: B543ZZA Ultrasonography of Right Jugular Veins, Guidance (ICD-10-PCS; principal; 2017-03-14)
PROC: 5A1D70Z Performance of Urinary Filtration, Intermittent, Less than 6 Hours Per Day (ICD-10-PCS; principal; 2017-03-14)
PROC: 02HV33Z Insertion of Infusion Device into Superior Vena Cava, Percutaneous Approach (ICD-10-PCS; principal; 2017-03-14)
PROC: 3E03317 Introduction of Other Thrombolytic into Peripheral Vein, Percutaneous Approach (ICD-10-PCS; 2017-03-22)
DX: I13.2 Hypertensive heart and chronic kidney disease with heart failure and with stage 5 chronic kidney disease, or end stage renal disease (principal); I50.43 Acute on chronic combined systolic (congestive) and diastolic (congestive) heart failure; J96.21 Acute and chronic respiratory failure with hypoxia; N17.9 Acute kidney failure, unspecified; T50.2X5A Adverse effect of carbonic-anhydrase inhibitors, benzothiadiazides and other diuretics, initial encounter; G93.41 Metabolic encephalopathy; F05 Delirium due to known physiological condition; I49.3 Ventricular premature depolarization; I63.511 Cerebral infarction due to unspecified occlusion or stenosis of right middle cerebral artery; G93.6 Cerebral edema; I61.9 Nontraumatic intracerebral hemorrhage, unspecified; G81.94 Hemiplegia, unspecified affecting left nondominant side; R47.1 Dysarthria and anarthria; Z51.5 Encounter for palliative care; J44.0 Chronic obstructive pulmonary disease with (acute) lower respiratory infection; J18.9 Pneumonia, unspecified organism; Y95 Nosocomial condition; E11.22 Type 2 diabetes mellitus with diabetic chronic kidney disease; N18.6 End stage renal disease; N40.0 Benign prostatic hyperplasia without lower urinary tract symptoms; I25.5 Ischemic cardiomyopathy; I21.4 Non-ST elevation (NSTEMI) myocardial infarction; I25.10 Atherosclerotic heart disease of native coronary artery without angina pectoris; E78.5 Hyperlipidemia, unspecified; E11.40 Type 2 diabetes mellitus with diabetic neuropathy, unspecified; E11.21 Type 2 diabetes mellitus with diabetic nephropathy; E11.319 Type 2 diabetes mellitus with unspecified diabetic retinopathy without macular edema; G47.30 Sleep apnea, unspecified; E66.9 Obesity, unspecified; D63.1 Anemia in chronic kidney disease; D50.0 Iron deficiency anemia secondary to blood loss (chronic); E87.8 Other disorders of electrolyte and fluid balance, not elsewhere classified; F32.9 Major depressive disorder, single episode, unspecified; F41.9 Anxiety disorder, unspecified; G47.33 Obstructive sleep apnea (adult) (pediatric); Z66 Do not resuscitate; I69.351 Hemiplegia and hemiparesis following cerebral infarction affecting right dominant side; Z87.891 Personal history of nicotine dependence; Z99.81 Dependence on supplemental oxygen; Z98.1 Arthrodesis status; Z79.82 Long term (current) use of aspirin; Z79.4 Long term (current) use of insulin; Z86.14 Personal history of Methicillin resistant Staphylococcus aureus infection; Z68.32 Body mass index [BMI] 32.0-32.9, adult
CPT/HCPCS: 36600; 70450; 71010; 71020; 76705; 80048; 80048 91; 80061; 80069; 80076; 80202; 81003; 82565; 82803; 82948; 83036; 83735; 83880; 84100; 84132 91; 84484; 84520; 84999; 85025; 85027; 85610; 85730; 86704; 86706; 86803; 87040; 87086; 87340; 87493; 87641; 93005; 94640; 94640 76; 94799; 95819; 99202; 99281; 99285; C1788; J0690; J0881; J1644; J1650; J1815; J1940; J2405; J2543; J2997; J3370; J7050